=== PATIENT | male | born 1950 | race African-American/Black ===

== ENCOUNTER 2019-09-10 10:54 | Observation (INO) | payer MEDICARE ==
[2019-09-10 11:16] LABS: #Eosinphils 0.1 thou/uL (0.0-0.7); #Lymphocytes 1.2 thou/uL (1.20-3.40); #Monocytes 0.6 thou/uL (0.11-0.59); #Neutrophils 10.8 thou/uL (1.40-6.50); %Basophils 0.3 % (0.0-1.0); %Eosinophils 0.7 % (0.0-10.0); %Lymphocytes 9.1 % (21.0-51.0); %Neutrophils 84.9 % (42.0-75.0); Hemoglobin 12.5 g/dL (14.0-18.0); Mean Corpuscular HGB CONC 33.3 g/dL (32.0-36.0); Mean Corpuscular Volume 87.3 fL (78.0-98.0); Mean Platelet Volume 7.5 fL (7.4-10.4); Platelet Count 285 thou/uL (130-400); RBC Distribution Width 11.6 % (11.5-14.5); White Blood Cell (WBC) Count 12.7 thou/uL (4.8-10.8)
[2019-09-10 11:35] LABS: ALT (SGPT) 67 U/L (8-55); AST (SGOT) 29 U/L (5-34); Albumin 3.8 g/dL (3.4-4.8); Alkaline Phosphatase 97 U/L (40-110); Anion Gap 18 mmol/L (10-20); BUN (Urea Nitrogen) 39 mg/dL (8.4-25.7); Bilirubin, Total 0.5 mg/dL (0.2-1.2); CK (CPK) 52 U/L (30-200); Calc. Creatinine Clearance 0 mL/min (70-130); Carbon Dioxide 23 mmol/L (23-31); Chloride 99 mmol/L (98-107); Estimated GFR-MDRD 43; Globulin 3.3 g/dL (2.4-3.5); Glucose 321 mg/dL (80-115); Lipase 39 U/L (8-78); Potassium 4.5 mmol/L (3.5-5.1); Protein, Total 7.1 g/dL (5.8-8.1); Sodium 135 mmol/L (136-145)
--- NOTE | 2019-09-10 11:52 | RAD ---
PORTABLE CHEST 1 VIEW: Date: 09/10/2019 Time: 1120 hours HISTORY: Dyspnea. Fatigue. Abnormal EKG FINDINGS: The heart size is normal. The lungs are expanded without focal areas of consolidation, pneumothoraces , or pleural effusions. IMPRESSION: No radiographic evidence of acute cardiopulmonary process. POS: TPC
[2019-09-10] MEDS ORDERED: Bisacodyl 10 MG SUPP PR PRN (13:25)
[2019-09-10] MEDS ORDERED: Nitroglycerin 0.4 MG TAB (25 Tab Bottle) PO PRN (13:25)
[2019-09-10] MEDS ORDERED: Dextrose 50% Abboject 50 ML SYRINGE SLOW IVP PRN (13:25)
[2019-09-10] MEDS ORDERED: Senokot S 8.6-50 MG TAB PO PRN (13:25)
[2019-09-10] MEDS ORDERED: Acetaminophen 325 MG TAB PO PRN (13:25)
[2019-09-10] MEDS ORDERED: Dextrose 5% in Water 1,000 ML IV PRN (13:25)
[2019-09-10] MEDS ORDERED: Guaifenesin DM 100-10/5 ML UDCUP PO PRN (13:25)
[2019-09-10] MEDS ORDERED: traMADol HCl 50 MG TAB PO PRN (13:25)
[2019-09-10] MEDS ORDERED: HumaLOG 300 UNITS/3 ML VIAL SC PRN ×2 (13:25)
[2019-09-10] MEDS ORDERED: Ondansetron PF 4 MG/2 ML Vial IVP PRN (13:25)
[2019-09-10] MEDS ORDERED: Sodium Chloride 0.9% 1,000 ML IV SCH (13:30)
--- NOTE | 2019-09-10 14:04 | HP ---
REASON FOR ADMISSION: Exertional shortness of breath and chest pain. HISTORY OF PRESENTING ILLNESS: The patient gives history of exertional shortness of breath on minimal exertion. He states it is around 50 to 75 feet. This gets resolved with the patient resting. This has started out in the last 2 weeks now. It has progressively gotten worse. He had a scheduled followup appointment to see his primary care physician and was transferred here. Also, his diabetes has been a bit uncontrolled with fingerstick glucose going beyond 300. He had an echo done last year in his primary care physician's office. As far as he knows, it was normal. He had mild chest discomfort, which is completely resolved now. No complaints of fever, cough, or expectoration. No flu-like illness in the past few days. PAST MEDICAL AND SURGICAL HISTORY: Hypertension, dyslipidemia, and diabetes mellitus, type 2. Had a cyst removed in his neck. Left foot surgery. CURRENT MEDICATIONS: 1. Janumet twice daily. 2. Simvastatin 10 mg daily. 3. Glyburide 5 mg daily. 4. Aspirin 81 mg daily. 5. Multivitamin one tablet once daily. It is unclear if he takes lisinopril. ALLERGIES: NO KNOWN DRUG ALLERGIES. PERSONAL HISTORY: Does not abuse alcohol or drugs. No history of smoking. 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 Lives with his . FAMILY HISTORY: Mother at the age of 87 from natural causes. Father at the age of 67. He was alcoholic and had cirrhosis. CODE STATUS: Full. 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 REVIEW OF SYSTEMS: CONSTITUTIONAL: Negative for weight loss or gain, ability to conduct usual activities. SKIN: Negative for rash, itching. EYES: Negative for double vision, pain. ENT/MOUTH: Negative for nose bleeding, neck stiffness, pain, tenderness. CARDIOVASCULAR: Negative for palpitations, dyspnea on exertion, orthopnea. RESPIRATORY: Negative for shortness of breath, wheezing, cough, hemoptysis, fever or night sweats. GASTROINTESTINAL: Negative for poor appetite, abdominal pain, heartburn, nausea , vomiting, constipation, or diarrhea. GENITOURINARY: Negative for urgency, frequency, dysuria, nocturia. MUSCULOSKELETAL: Negative for pain, swelling. NEUROLOGIC/PSYCHIATRIC: Negative for anxiety, depression. ALLERGY/IMMUNOLOGIC: Negative for skin rash, bleeding tendency. PHYSICAL EXAMINATION: GENERAL: The patient is a 69-year-old male, who is currently not in any acute distress. VITAL SIGNS: Blood pressure 130/70, pulse 88 per minute, respiratory rate 14 per minute, temperature 97.8 degrees Fahrenheit, and saturating 100% on room air. NECK: Supple. No elevated JVD. HEENT: Eyes; extraocular muscles intact. Pupils reacting to light. Oral cavity, mucous membranes are dry. No exudates or congestion. CARDIOVASCULAR SYSTEM: S1 and S2 heard. Regular rhythm. RESPIRATORY SYSTEM: Air entry 1+ bilateral. No rales or rhonchi. ABDOMEN: Soft. Bowel sounds heard. No tenderness, rigidity, or guarding. EXTREMITIES: No peripheral edema or calf tenderness. VASCULAR SYSTEM: Peripheral pulses 1+ bilateral. No ischemic ulcerations or gangrene. CENTRAL NERVOUS SYSTEM: No gross focal deficits noted. The patient is alert, awake, and oriented well. PSYCHIATRIC SYSTEM: The patient's mood is euthymic. No hallucinations or delusions. LABORATORY DATA: EKG done shows normal sinus rhythm at 84 beats per minute. There are signs of LVH with poor R-wave progression with Q wave seen in leads II and III. Chest x-ray done shows no acute cardiopulmonary process. BUN 39, creatinine 1.8 , serum glucose 321. AST 29, ALT 67, T bilirubin 0.5, alkaline phosphatase 97. Troponin x1 negative. Albumin is 3.8. Lipase is 39. H and H 12 and 37, platelet count 285, white count of 12.7 with 84% neutrophils. CLINICAL IMPRESSION AND PLAN: The patient will be under observation on telemetry for exertional shortness of breath with one episode of mild chest pain, which got resolved. He has some EKG changes of likely LVH with Q waves in inferior wall. We will obtain two more sets of cardiac enzymes and keep him n.p.o. after midnight for nuclear stress test in the morning. Echo with 2D Doppler for LV function. BNP level. Influenza A and B antigens as well. We will continue him on full dose aspirin, Norvasc 10 mg, glyburide at 5 mg, Lantus 10 units subcu twice daily, and we will hold his metformin for now. We will also hold his lisinopril in view of acute kidney injury likely with CKD. He will be gently hydrated with normal saline at 100 mL per hour. This will be held if his BNP is high. Clinically, the patient appears to be mildly dehydrated. We will obtain a lipid profile in the morning. Job ID: [id number] MTDD
[2019-09-10 14:19] LABS: Bacteria/HPF 4+ HPF (None Seen); Bilirubin Negative (Negative); Blood, Urine 2+ (Negative); Clarity Turbid (Clear); Glucose, Urine (Dipstick) 500 mg/dL (Negative); Leukocyte 500 Leu/uL (Negative); Nitrite 2+ (Negative); Protein, Urine (Dipstick) 30 mg/dL (Neg-Trace); Urobilinogen Normal mg/dL (Less than 2); WBC/HPF Greater than 50 HPF (0-3)
[2019-09-10 15:03] LABS: Hemoglobin A1c 10.1 % (4.0-6.0)
--- NOTE | 2019-09-10 15:08 | CT ---
CT PULMONARY ANGIOGRAM WITH IV CONTRAST AND 3D POSTPROCESSING: Date: 09/10/2019 HISTORY: Shortness of breath. FINDINGS: There is good contrast opacification of the pulmonary arterial vasculature without filling defects to suggest pulmonary embolism. The thoracic aorta is opacified without aneurysm or dissection. No pleur al or pericardial effusions are seen. No lung masses or focal areas of consolidation are noted. There are calcified lymph nodes in the mediastinum and right hilum. A small hiatal hernia is present. Ther e is inferior intrathoracic/substernal extension of a nodular thyroid gland. There are degenerative c hanges in the spine. There are cysts in the left kidney on the upper abdominal tomograms. A small hia kristen hernia is present. IMPRESSION: No CT evidence for pulmonary embolism. POS: TPC
[2019-09-10 15:12] LABS: Troponin I 0.011 ng/mL (< 0.028)
[2019-09-10] MEDS ORDERED: Iopamidol-370 76% 500 ML 1 ML ONE (15:55)
[2019-09-10 16:04] VITALS: BMI 30.6
[2019-09-10 17:53] LABS: Troponin I Less than 0.010 ng/mL (< 0.028)
[2019-09-10] MEDS: Famotidine 20 MG TAB PO SCH (19:33)
[2019-09-10] MEDS: Insulin Glargine 10 UNITS in Pre-Filled Syringe SC SCH (20:48)
[2019-09-10] MEDS ORDERED: Simvastatin 20 MG TAB PO SCH (21:00)
[2019-09-11 05:20] LABS: #Eosinphils 0.1 thou/uL (0.0-0.7); #Lymphocytes 1.6 thou/uL (1.20-3.40); #Monocytes 1.1 thou/uL (0.11-0.59); #Neutrophils 7.4 thou/uL (1.40-6.50); %Basophils 0.3 % (0.0-1.0); %Lymphocytes 15.3 % (21.0-51.0); %Monocytes 10.5 % (0.0-10.0); %Neutrophils 72.8 % (42.0-75.0); Hemoglobin 10.9 g/dL (14.0-18.0); Mean Corpuscular Hemoglobin 28.5 pg (27.0-31.0); Mean Corpuscular Volume 86.5 fL (78.0-98.0); Mean Platelet Volume 7.9 fL (7.4-10.4); Platelet Count 262 thou/uL (130-400); RBC Distribution Width 11.5 % (11.5-14.5); Red Blood Cell (RBC) Count 3.84 mill/uL (4.70-6.10); White Blood Cell (WBC) Count 10.2 thou/uL (4.8-10.8)
[2019-09-11 05:49] LABS: Anion Gap 15 mmol/L (10-20); BUN (Urea Nitrogen) 33 mg/dL (8.4-25.7); Calc. Creatinine Clearance 66 mL/min (70-130); Calcium 8.8 mg/dL (7.8-10.44); Carbon Dioxide 23 mmol/L (23-31); Cardiac Risk 3.8 (Less than 4.5); Chloride 104 mmol/L (98-107); Cholesterol 84 mg/dl (< 200 Desired); Estimated GFR-MDRD 62; Glucose 148 mg/dL (80-115); HDL Cholesterol 22 mg/dL (>60 Neg Risk); LDL Cholesterol, Calculated 48 mg/dL; Potassium 4.5 mmol/L (3.5-5.1); Sodium 137 mmol/L (136-145); Triglycerides 71 mg/dL (Less than 150)
[2019-09-11] MEDS: Insulin Glargine 10 UNITS in Pre-Filled Syringe SC SCH (07:39)
[2019-09-11] MEDS: Famotidine 20 MG TAB PO SCH (07:46)
[2019-09-11] MEDS ORDERED: glyBURIDE 5 MG TAB PO SCH (08:00)
[2019-09-11 08:23] VITALS: TEMP 97.8
[2019-09-11] MEDS ORDERED: Aspirin 325 mg Enteric Coated Tablet PO SCH (09:00)
[2019-09-11] MEDS ORDERED: Amlodipine 10 MG TAB PO SCH (09:00)
[2019-09-11] MEDS ORDERED: Enoxaparin Sodium 40 MG/0.4 ML SYRINGE SC SCH (09:00)
--- NOTE | 2019-09-11 12:22 | NM ---
NM Cardiac Stress W EF WF History: Chest pain Comparison: None. Findings: Stress and rest performed after the intravenous administration of 31.7 and 10.1 mCi technet ium 99m sestamibi, respectively. No evidence for scar or ischemia. Normal wall motion. Calculated ejection fraction is 56%. Impression: Normal nuclear medicine cardiac stress test.
[2019-09-11 12:50] VITALS: BP 141/65
[2019-09-11] MEDS ORDERED: ADENOSINE 60 MG/20 ML VIAL ONE (15:45)
--- NOTE | 2019-09-11 18:21 | DIS ---
DATE OF ADMISSION: 09/10/2019 DATE OF DISCHARGE: 09/11/2019 DISCHARGE DISPOSITION: Home. PRIMARY DISCHARGE DIAGNOSIS: Shortness of breath on exertion with chest discomfort, resolved. SECONDARY DISCHARGE DIAGNOSES: Uncontrolled diabetes, dyslipidemia, and hypertension. PROCEDURES DONE DURING HOSPITALIZATION: CT angio chest done, showed no evidence of PE. Echo with 2D Doppler showed ejection fraction of 55% to 60%, there was diastolic dysfunction. Nuclear stress test done was normal with normal wall motion, no evidence of scar or ischemia. Urine culture grew gram-negative sandra with preliminary culture, sensitivities are pending. Influenza A and B antigens are negative. H and H 11 and 33, platelet count 262, MCV is 86. Initial BUN and creatinine were 39 and 1.8. HbA1c 10.1. Troponin x3 negative. BNP 60. Total cholesterol 84, triglycerides 71, LDL 48, and HDL 22. Discharge BUN and creatinine of 33 and 1.3. DISCHARGE MEDICATIONS: 1. Ciprofloxacin 500 mg p.o. twice daily for 5 days for UTI. 2. Lisinopril 10 mg p.o. daily. 3. Norvasc 10 mg p.o. daily. 4. Janumet extended release mg twice daily. 5. Glimepiride 4 mg p.o. q.a.m. 6. Multivitamin 1 capsule daily. 7. Aspirin 81 mg p.o. daily. 8. Simvastatin 20 mg p.o. daily. ALLERGIES: NO KNOWN DRUG ALLERGIES. DISCHARGE PLAN: The patient to follow up with in 1 week. The patient also requires outpatient screening colonoscopy. BRIEF COURSE DURING HOSPITALIZATION: The patient initially was sent over from his primary care physician's office for new onset of exertional shortness of breath. In view of this history, the patient was placed under observation on telemetry. He has multiple risk factors for ACS. He has had 3 sets of troponin done, which were negative. Echo with 2D Doppler done showed normal ejection fraction with diastolic dysfunction. Nuclear stress test showed no reversible ischemia. The patient has H and H of 11 and 33, and would benefit from outpatient colonoscopy, which is a screening measure, he has never had one per the patient. He has also mentioned that he has lost some weight recently. Further workup in this regard to be done via primary care physician's office. He is otherwise hemodynamically stable and will be shortly discharged home. Please note, I have seen and examined the patient on the day of discharge. Job ID: [id number]
[2019-09-11] MEDS ORDERED: Ciprofloxacin 500 MG TAB PO SCH (20:00)
== END 2019-09-11 14:37 | disposition home or self-care (01) ==
LOC: ERS 10:54 → ERHOLD 14:03 → 2SW 15:53
PROVIDERS: ADMIT Internal Medicine; ATTEND Emergency Medicine
DX: R06.02 Shortness of breath (principal); R07.89 Other chest pain; I10 Essential (primary) hypertension; E11.9 Type 2 diabetes mellitus without complications; E78.5 Hyperlipidemia, unspecified; Z79.84 Long term (current) use of oral hypoglycemic drugs; Z79.82 Long term (current) use of aspirin; Z79.899 Other long term (current) drug therapy
CPT/HCPCS: 71045; 71275; 78452; 80048; 80053; 80061; 82550; 82962 ×2; 83036; 83690; 83880; 84484 ×2; 85025 ×2; 85379; 87077; 87086; 87186; 87804 ×2; 93005; 93017; 93306; 94760; 96360; 96361 ×2; 96372; 99285; A9500; G0378 ×3; 36415; 36416; 81003; 81015; J0153; J1650; J1815; Q9967

== ENCOUNTER 2020-12-25 15:57 | Outpatient (CLI) | payer MEDICARE ==
[2020-12-26 02:15] LABS: SARS-CoV-2 PCR by NAA Not Detected (NotDetected)
== END 2020-12-25 15:58 | disposition home or self-care (01) ==
LOC: LABBT 15:57
PROVIDERS: ATTEND Ophthalmology Retina Specialist
DX: Z01.812 Encounter for preprocedural laboratory examination (principal); H43.11 Vitreous hemorrhage, right eye; Z20.822 Contact with and (suspected) exposure to COVID-19
CPT/HCPCS: U0003; U0005; 87635

== ENCOUNTER 2020-12-30 08:26 | Day surgery (SDC) | payer MEDICARE ==
[~2020-12-30 08:26] MED LIST: Cyclopentolate 1% Ophth Drops 15 ML BOT ONE; EPINEPHrine 0.3 MG in Ophthalmic Irrigation Solution 500 ML IRR SCH; Fentanyl 100 MCG/2 ML VIAL ONE; Midazolam HCl 2 mg/2 ml Vial ONE; Phenylephrine 2.5% Ophth Soln 5 ML BOT ONE
[2020-12-30] MEDS ORDERED: Triamcinolone 40 MG/ML VIAL ONE (09:24)
[2020-12-30] MEDS ORDERED: Lidocaine 4% PF 5 ML AMP ONE (09:24)
[2020-12-30] MEDS ORDERED: CEFAZOLIN 1 GM VIAL ONE (09:24)
[2020-12-30] MEDS ORDERED: Maxitrol 0.1% Opth Oint 3.5 GM TUBE ONE (09:24)
[2020-12-30] MEDS ORDERED: PROPOFOL 200 MG/20 ML VIAL ONE (09:24)
[2020-12-30] MEDS ORDERED: Lidocaine 1% PF 5 ML VIAL ONE (09:24)
[2020-12-30] MEDS ORDERED: Bupivacaine PF 0.75% SDV 10 ML ONE (09:24)
== END 2020-12-30 10:30 | disposition home or self-care (01) ==
LOC: SDC 08:26
PROVIDERS: ATTEND Ophthalmology Retina Specialist
PROC: 08T43ZZ Resection of Right Vitreous, Percutaneous Approach (ICD-10-PCS; principal; 2020-12-30)
PROC: 08QE3ZZ Repair Right Retina, Percutaneous Approach (ICD-10-PCS; 2020-12-30)
DX: H43.11 Vitreous hemorrhage, right eye (principal); E11.3591 Type 2 diabetes mellitus with proliferative diabetic retinopathy without macular edema, right eye; Z79.82 Long term (current) use of aspirin; Z79.84 Long term (current) use of oral hypoglycemic drugs; Z79.899 Other long term (current) drug therapy
CPT/HCPCS: J0171; J0690; J2250; J2704; J3010; J3301; J3490

== ENCOUNTER 2021-12-15 13:31 | Inpatient (IN) | payer MEDICARE ==
[~2021-12-15 13:31] MED LIST changes: -Cyclopentolate 1% Ophth Drops 15 ML BOT ONE; -EPINEPHrine 0.3 MG in Ophthalmic Irrigation Solution 500 ML IRR SCH; -Fentanyl 100 MCG/2 ML VIAL ONE; +Heparin 1,000 UNITS/ML VIAL ONE; -Midazolam HCl 2 mg/2 ml Vial ONE; -Phenylephrine 2.5% Ophth Soln 5 ML BOT ONE
[2021-12-15 15:04] LABS: #Eosinphils 0.1 thou/uL (0.0-0.7); #Lymphocytes 1.5 thou/uL (1.20-3.40); #Monocytes 1.3 thou/uL (0.11-0.59); #Neutrophils 13.7 thou/uL (1.40-6.50); %Basophils 0.3 % (0.0-1.0); %Eosinophils 0.4 % (0.0-10.0); %Lymphocytes 8.8 % (21.0-51.0); %Monocytes 8.1 % (0.0-10.0); %Neutrophils 82.5 % (42.0-75.0); Hemoglobin 11.8 g/dL (14.0-18.0); Mean Corpuscular HGB CONC 31.9 g/dL (32.0-36.0); Mean Corpuscular Hemoglobin 28.7 pg (27.0-31.0); Mean Platelet Volume 7.4 fL (7.4-10.4); Platelet Count 265 thou/uL (130-400); RBC Distribution Width 11.9 % (11.5-14.5); Red Blood Cell (RBC) Count 4.09 mill/uL (4.70-6.10); White Blood Cell (WBC) Count 16.6 thou/uL (4.8-10.8)
[2021-12-15 15:21] LABS: ALT (SGPT) 70 U/L (8-55); AST (SGOT) 63 U/L (5-34); Alkaline Phosphatase 104 U/L (40-110); Anion Gap 16 mmol/L (10-20); BUN (Urea Nitrogen) 34 mg/dL (8.4-25.7); Bilirubin, Total 0.6 mg/dL (0.2-1.2); Calc. Creatinine Clearance 0 mL/min (70-130); Calcium 9.6 mg/dL (7.8-10.44); Carbon Dioxide 23 mmol/L (23-31); Chloride 99 mmol/L (98-107); Globulin 3.9 g/dL (2.4-3.5); Glucose 289 mg/dL (83-110); Potassium 4.6 mmol/L (3.5-5.1); Protein, Total 7.9 g/dL (5.8-8.1); Sodium 133 mmol/L (136-145)
[2021-12-15] MEDS ORDERED: Cefepime 2 GM VIAL ONE (16:05)
[2021-12-15] MEDS ORDERED: Clindamycin/D5W 900 MG in Premix Bag 1 BAG IVPB SCH (18:00)
[2021-12-15] MEDS ORDERED: Vancomycin 1 GM/200 ML BAG ONE ×2 (19:04→19:09)
[2021-12-15] MEDS ORDERED: VANCOMYCIN 2 GRAM/400 ML BAG 2 GM in Premix Bag 1 BAG IVPB SCH (19:30)
[2021-12-15 20:36] LABS: Lactic Acid 1.7 mmol/L (0.5-2.2)
[2021-12-15] MEDS ORDERED: Propranolol 10 MG TAB PO SCH (21:45)
[2021-12-15] MEDS ORDERED: Polyethylene Glycol 3350 17 GM Packet PO PRN (22:26)
[2021-12-15 22:27] LABS: SARS-CoV-2 PCR by NAA Not Detected (NotDetected)
[2021-12-16] MEDS ORDERED: Dextrose 5% in Water 1,000 ML IV PRN (00:03)
[2021-12-16] MEDS ORDERED: Acetaminophen 650 MG Suppository PR PRN (00:03)
[2021-12-16] MEDS ORDERED: Ondansetron ODT 4 MG TAB PO PRN (00:03)
[2021-12-16] MEDS ORDERED: Dextrose 50% Abboject 50 ML SYRINGE SLOW IVP PRN (00:03)
[2021-12-16] MEDS ORDERED: HumaLOG 300 UNITS/3 ML VIAL SC PRN (00:03)
[2021-12-16] MEDS ORDERED: Ondansetron PF 4 MG/2 ML Vial IVP PRN (00:03)
[2021-12-16] MEDS ORDERED: Piperacillin/Tazobactam 3.375 GM in Sodium Chloride 0.9% 100 ML IVPB SCH ×2 (01:00→05:00)
[2021-12-16 05:18] LABS: #Eosinphils 0.1 thou/uL (0.0-0.7); #Lymphocytes 1.5 thou/uL (1.20-3.40); #Monocytes 1.1 thou/uL (0.11-0.59); #Neutrophils 10.6 thou/uL (1.40-6.50); %Basophils 0.1 % (0.0-1.0); %Eosinophils 0.5 % (0.0-10.0); %Lymphocytes 11.5 % (21.0-51.0); %Monocytes 8.1 % (0.0-10.0); %Neutrophils 79.8 % (42.0-75.0); Hemoglobin 10.5 g/dL (14.0-18.0); Mean Corpuscular HGB CONC 32.7 g/dL (32.0-36.0); Mean Corpuscular Hemoglobin 29.3 pg (27.0-31.0); Mean Corpuscular Volume 89.4 fL (78.0-98.0); Mean Platelet Volume 7.4 fL (7.4-10.4); Platelet Count 231 thou/uL (130-400); RBC Distribution Width 11.8 % (11.5-14.5); White Blood Cell (WBC) Count 13.3 thou/uL (4.8-10.8)
[2021-12-16 05:27] LABS: Anion Gap 16 mmol/L (10-20); BUN (Urea Nitrogen) 31 mg/dL (8.4-25.7); Calc. Creatinine Clearance 71 mL/min (70-130); Carbon Dioxide 22 mmol/L (23-31); Chloride 101 mmol/L (98-107); Glucose 213 mg/dL (83-110); Potassium 3.9 mmol/L (3.5-5.1); Sodium 135 mmol/L (136-145)
[2021-12-16] MEDS: HumaLOG 300 UNITS/3 ML VIAL SC PRN ×2 (06:22→18:35)
[2021-12-16] MEDS: Propranolol 10 MG TAB PO SCH ×2 (08:02→20:55)
[2021-12-16] MEDS: Amlodipine 10 MG TAB PO SCH (08:02)
[2021-12-16] MEDS: Enoxaparin Sodium 40 MG/0.4 ML SYRINGE SC SCH (08:03)
[2021-12-16] MEDS: Lisinopril 10 MG TAB PO SCH (08:03)
[2021-12-16] MEDS: Piperacillin/Tazobactam 3.375 GM in Sodium Chloride 0.9% 100 ML IVPB SCH ×3 (08:04→23:43)
[2021-12-16] MEDS ORDERED: Lidocaine 1% (PF) 30 ML VIAL ONE (08:20)
[2021-12-16] MEDS ORDERED: Heparin 10,000 UNITS/ 10 ML VIAL ONE (08:20)
[2021-12-16] MEDS ORDERED: Iopamidol 370 76% 50 ML VIAL FS ONE (08:52)
[2021-12-16] MEDS ORDERED: Aspirin 81 mg Enteric Coated Tablet PO SCH (14:30)
[2021-12-16] MEDS: Vancomycin 1.5 GRAM/300 ML BAG 1.5 GM in Premix Bag 1 BAG IVPB SCH (20:54)
[2021-12-16] MEDS: Atorvastatin Calcium 40 MG TAB PO SCH (20:55)
[2021-12-16] MEDS: Acetaminophen 325 MG TAB PO PRN (23:43)
[2021-12-17] MEDS: Lisinopril 10 MG TAB PO SCH (08:34)
[2021-12-17] MEDS: Clopidogrel Bisulfate 75 MG TAB PO SCH (08:34)
[2021-12-17] MEDS: Amlodipine 10 MG TAB PO SCH (08:35)
[2021-12-17] MEDS: Propranolol 10 MG TAB PO SCH ×2 (08:35→20:28)
[2021-12-17] MEDS: Enoxaparin Sodium 40 MG/0.4 ML SYRINGE SC SCH (08:35)
[2021-12-17] MEDS: Aspirin 81 mg Enteric Coated Tablet PO SCH (08:35)
[2021-12-17] MEDS: Piperacillin/Tazobactam 3.375 GM in Sodium Chloride 0.9% 100 ML IVPB SCH ×3 (08:36→23:53)
[2021-12-17] MEDS ORDERED: Magnesium Citrate 300 ML BOT PO SCH ×2 (12:45→17:00)
[2021-12-17] MEDS ORDERED: Bupivacaine 0.25% HCL 30 ML VIAL ONE (16:13)
[2021-12-17] MEDS ORDERED: Neomycin-Polymyxin 1 ML AMP ONE (16:13)
[2021-12-17] MEDS ORDERED: Bacitracin Zinc Ointment 30 gm TUBE ONE (16:13)
[2021-12-17] MEDS ORDERED: Lidocaine 2% PF 5 ML VIAL ONE (16:15)
[2021-12-17] MEDS ORDERED: Piperacillin/Tazobactam 3.375 GM VIAL ONE (17:02)
[2021-12-17] MEDS ORDERED: Sodium Chloride 0.9% 100 ML ONE (17:02)
[2021-12-17] MEDS ORDERED: Fentanyl 100 MCG/2 ML VIAL ONE (17:09)
[2021-12-17] MEDS ORDERED: PROPOFOL 200 MG/20 ML VIAL ONE (17:36)
[2021-12-17] MEDS ORDERED: PHENYLEPHRINE-NS 100 MCG/ML 10 ML SYRINGE ONE (17:36)
[2021-12-17] MEDS ORDERED: Ondansetron PF 4 MG/2 ML Vial ONE (17:36)
[2021-12-17] MEDS ORDERED: Lidocaine 1% PF 5 ML VIAL ONE (17:36)
[2021-12-17] MEDS ORDERED: Bupivacaine 0.75% 10 ML VIAL ONE (17:40)
[2021-12-17] MEDS ORDERED: Ondansetron HCl/PF 4 MG/2 ML Vial IVP PRN (18:55)
[2021-12-17] MEDS ORDERED: Promethazine HCl 25 MG/ML VIAL IM PRN (18:55)
[2021-12-17] MEDS ORDERED: Promethazine HCl 25 MG/ML VIAL IVPB PRN (18:55)
[2021-12-17] MEDS: Atorvastatin Calcium 40 MG TAB PO SCH (20:28)
[2021-12-17] MEDS: Senokot S 8.6-50 MG TAB PO SCH (20:28)
[2021-12-17] MEDS: Vancomycin 1.5 GRAM/300 ML BAG 1.5 GM in Premix Bag 1 BAG IVPB SCH (20:36)
[2021-12-17 20:50] LABS: Vancomycin, Trough 10.5 ug/mL
[2021-12-17] MEDS: Vancomycin 1 GM in Premix Bag 1 BAG IVPB SCH (22:07)
[2021-12-18 05:05] LABS: #Eosinphils 0.1 thou/uL (0.0-0.7); #Lymphocytes 1.5 thou/uL (1.20-3.40); #Monocytes 0.9 thou/uL (0.11-0.59); #Neutrophils 9.5 thou/uL (1.40-6.50); %Eosinophils 0.7 % (0.0-10.0); %Lymphocytes 12.5 % (21.0-51.0); %Monocytes 7.2 % (0.0-10.0); %Neutrophils 79.5 % (42.0-75.0); Hemoglobin 10.9 g/dL (14.0-18.0); Mean Corpuscular HGB CONC 32.5 g/dL (32.0-36.0); Mean Corpuscular Hemoglobin 29.2 pg (27.0-31.0); Mean Corpuscular Volume 89.8 fL (78.0-98.0); Mean Platelet Volume 7.6 fL (7.4-10.4); Platelet Count 259 thou/uL (130-400); RBC Distribution Width 11.8 % (11.5-14.5); Red Blood Cell (RBC) Count 3.75 mill/uL (4.70-6.10)
[2021-12-18 05:25] LABS: Anion Gap 14 mmol/L (10-20); BUN (Urea Nitrogen) 17 mg/dL (8.4-25.7); CRP (Inflammatory) 14.31 mg/dL (= or < 0.5); Calc. Creatinine Clearance 80 mL/min (70-130); Calcium 8.8 mg/dL (7.8-10.44); Carbon Dioxide 21 mmol/L (23-31); Chloride 102 mmol/L (98-107); Glucose 229 mg/dL (83-110); Potassium 4.3 mmol/L (3.5-5.1); Sodium 133 mmol/L (136-145)
[2021-12-18] MEDS: HumaLOG 300 UNITS/3 ML VIAL SC PRN ×3 (06:25→16:33)
[2021-12-18] MEDS: Piperacillin/Tazobactam 3.375 GM in Sodium Chloride 0.9% 100 ML IVPB SCH ×3 (08:18→23:36)
[2021-12-18] MEDS: Enoxaparin Sodium 40 MG/0.4 ML SYRINGE SC SCH (08:18)
[2021-12-18] MEDS: Lisinopril 10 MG TAB PO SCH (08:19)
[2021-12-18] MEDS: Propranolol 10 MG TAB PO SCH ×2 (08:19→20:30)
[2021-12-18] MEDS: Amlodipine 10 MG TAB PO SCH (08:19)
[2021-12-18] MEDS: Aspirin 81 mg Enteric Coated Tablet PO SCH (08:19)
[2021-12-18] MEDS: Senokot S 8.6-50 MG TAB PO SCH ×2 (08:19→20:30)
[2021-12-18] MEDS: Clopidogrel Bisulfate 75 MG TAB PO SCH (08:19)
[2021-12-18] MEDS: Vancomycin 1 GM in Premix Bag 1 BAG IVPB SCH ×2 (09:04→20:28)
[2021-12-18] MEDS: Atorvastatin Calcium 40 MG TAB PO SCH (20:30)
[2021-12-18] MEDS ORDERED: Insulin Glargine 30 UNITS/0.3 ML VIAL SC SCH (21:00)
[2021-12-19] MEDS: Insulin Regular 300 UNITS/3 ML VIAL SC PRN ×4 (05:11→20:38)
[2021-12-19 05:29] LABS: #Eosinphils 0.1 thou/uL (0.0-0.7); #Lymphocytes 1.8 thou/uL (1.20-3.40); #Monocytes 0.9 thou/uL (0.11-0.59); %Basophils 0.4 % (0.0-1.0); %Eosinophils 0.8 % (0.0-10.0); %Lymphocytes 14.9 % (21.0-51.0); %Monocytes 7.4 % (0.0-10.0); %Neutrophils 76.6 % (42.0-75.0); Hemoglobin 10.6 g/dL (14.0-18.0); Mean Corpuscular HGB CONC 33.7 g/dL (32.0-36.0); Mean Corpuscular Hemoglobin 29.9 pg (27.0-31.0); Mean Corpuscular Volume 88.6 fL (78.0-98.0); Platelet Count 279 thou/uL (130-400); RBC Distribution Width 11.7 % (11.5-14.5); Red Blood Cell (RBC) Count 3.55 mill/uL (4.70-6.10); White Blood Cell (WBC) Count 11.8 thou/uL (4.8-10.8)
[2021-12-19 05:49] LABS: Anion Gap 13 mmol/L (10-20); BUN (Urea Nitrogen) 17 mg/dL (8.4-25.7); CRP (Inflammatory) 13.25 mg/dL (= or < 0.5); Calc. Creatinine Clearance 78 mL/min (70-130); Calcium 8.7 mg/dL (7.8-10.44); Carbon Dioxide 24 mmol/L (23-31); Chloride 103 mmol/L (98-107); Glucose 247 mg/dL (83-110); Potassium 4.5 mmol/L (3.5-5.1); Sodium 135 mmol/L (136-145)
[2021-12-19 08:29] LABS: Vancomycin, Trough 18.7 ug/mL
[2021-12-19] MEDS: Piperacillin/Tazobactam 3.375 GM in Sodium Chloride 0.9% 100 ML IVPB SCH ×3 (09:44→23:34)
[2021-12-19] MEDS: Amlodipine 10 MG TAB PO SCH (09:47)
[2021-12-19] MEDS: Aspirin 81 mg Enteric Coated Tablet PO SCH (09:48)
[2021-12-19] MEDS: Lisinopril 10 MG TAB PO SCH (09:48)
[2021-12-19] MEDS: Clopidogrel Bisulfate 75 MG TAB PO SCH (09:48)
[2021-12-19] MEDS: Propranolol 10 MG TAB PO SCH ×2 (09:49→20:36)
[2021-12-19] MEDS: Enoxaparin Sodium 40 MG/0.4 ML SYRINGE SC SCH (09:49)
[2021-12-19] MEDS: Senokot S 8.6-50 MG TAB PO SCH ×2 (09:51→20:36)
[2021-12-19] MEDS: Vancomycin 1 GM in Premix Bag 1 BAG IVPB SCH ×2 (13:09→21:42)
[2021-12-19] MEDS: Atorvastatin Calcium 40 MG TAB PO SCH (20:36)
[2021-12-19] MEDS ORDERED: Insulin Glargine 30 UNITS/0.3 ML VIAL SC SCH (21:00)
[2021-12-20 05:10] LABS: #Eosinphils 0.2 thou/uL (0.0-0.7); #Lymphocytes 1.8 thou/uL (1.20-3.40); #Monocytes 0.8 thou/uL (0.11-0.59); #Neutrophils 8.7 thou/uL (1.40-6.50); %Basophils 0.3 % (0.0-1.0); %Eosinophils 1.5 % (0.0-10.0); %Monocytes 6.5 % (0.0-10.0); %Neutrophils 75.7 % (42.0-75.0); Hemoglobin 9.8 g/dL (14.0-18.0); Mean Corpuscular HGB CONC 32.7 g/dL (32.0-36.0); Mean Corpuscular Volume 88.6 fL (78.0-98.0); Mean Platelet Volume 7.1 fL (7.4-10.4); Platelet Count 292 thou/uL (130-400); RBC Distribution Width 11.8 % (11.5-14.5); Red Blood Cell (RBC) Count 3.38 mill/uL (4.70-6.10); White Blood Cell (WBC) Count 11.5 thou/uL (4.8-10.8)
[2021-12-20 05:35] LABS: Anion Gap 14 mmol/L (10-20); BUN (Urea Nitrogen) 27 mg/dL (8.4-25.7); Calc. Creatinine Clearance 61 mL/min (70-130); Calcium 8.9 mg/dL (7.8-10.44); Carbon Dioxide 22 mmol/L (23-31); Chloride 103 mmol/L (98-107); Glucose 182 mg/dL (83-110); Potassium 4.1 mmol/L (3.5-5.1); Sodium 135 mmol/L (136-145)
[2021-12-20] MEDS: Insulin Regular 300 UNITS/3 ML VIAL SC PRN ×4 (06:35→20:43)
[2021-12-20] MEDS: Enoxaparin Sodium 40 MG/0.4 ML SYRINGE SC SCH (09:00)
[2021-12-20] MEDS: Senokot S 8.6-50 MG TAB PO SCH ×2 (09:00→20:36)
[2021-12-20] MEDS: Aspirin 81 mg Enteric Coated Tablet PO SCH (09:00)
[2021-12-20] MEDS: Clopidogrel Bisulfate 75 MG TAB PO SCH (09:00)
[2021-12-20] MEDS: Vancomycin 1 GM in Premix Bag 1 BAG IVPB SCH ×2 (09:00→20:27)
[2021-12-20] MEDS: Propranolol 10 MG TAB PO SCH ×2 (09:00→20:37)
[2021-12-20] MEDS: Piperacillin/Tazobactam 3.375 GM in Sodium Chloride 0.9% 100 ML IVPB SCH ×3 (09:00→23:27)
[2021-12-20 13:13] LABS: HBSAg Index 0.23 S/CO (0-0.99); HIV (1/2) Antibody/Antigen Non-Reactive (NonReactive); HIV 1/2 INDEX 0.07 S/CO (<1.00); Hep B Surf Ag Non-Reactive S/CO (NonReactive); Hep C IgG Ab Non-Reactive (NonReactive); Hep C Index 0.07 S/CO (0-0.79)
[2021-12-20] MEDS: Insulin Glargine 30 UNITS/0.3 ML VIAL SC SCH (20:35)
[2021-12-20] MEDS: Atorvastatin Calcium 40 MG TAB PO SCH (20:37)
[2021-12-20 20:54] LABS: Vancomycin, Trough 25.1 ug/mL
[2021-12-21 05:23] LABS: #Eosinphils 0.2 thou/uL (0.0-0.7); #Lymphocytes 1.9 thou/uL (1.20-3.40); #Monocytes 0.8 thou/uL (0.11-0.59); #Neutrophils 7.8 thou/uL (1.40-6.50); %Basophils 0.1 % (0.0-1.0); %Eosinophils 1.5 % (0.0-10.0); %Lymphocytes 17.5 % (21.0-51.0); %Monocytes 7.5 % (0.0-10.0); %Neutrophils 73.4 % (42.0-75.0); Hemoglobin 9.6 g/dL (14.0-18.0); Mean Corpuscular HGB CONC 32.8 g/dL (32.0-36.0); Mean Corpuscular Hemoglobin 28.9 pg (27.0-31.0); Mean Corpuscular Volume 88.3 fL (78.0-98.0); Mean Platelet Volume 6.9 fL (7.4-10.4); Platelet Count 302 thou/uL (130-400); RBC Distribution Width 11.7 % (11.5-14.5); Red Blood Cell (RBC) Count 3.32 mill/uL (4.70-6.10); White Blood Cell (WBC) Count 10.6 thou/uL (4.8-10.8)
[2021-12-21 05:48] LABS: Anion Gap 12 mmol/L (10-20); BUN (Urea Nitrogen) 24 mg/dL (8.4-25.7); CRP (Inflammatory) 7.46 mg/dL (= or < 0.5); Calc. Creatinine Clearance 64 mL/min (70-130); Calcium 9.2 mg/dL (7.8-10.44); Carbon Dioxide 24 mmol/L (23-31); Chloride 105 mmol/L (98-107); Glucose 96 mg/dL (83-110); Potassium 3.8 mmol/L (3.5-5.1); Sodium 137 mmol/L (136-145)
[2021-12-21] MEDS: Piperacillin/Tazobactam 3.375 GM in Sodium Chloride 0.9% 100 ML IVPB SCH ×2 (09:20→17:55)
[2021-12-21] MEDS: Senokot S 8.6-50 MG TAB PO SCH ×2 (09:21→20:46)
[2021-12-21] MEDS: Aspirin 81 mg Enteric Coated Tablet PO SCH (09:21)
[2021-12-21] MEDS: Enoxaparin Sodium 40 MG/0.4 ML SYRINGE SC SCH (09:21)
[2021-12-21] MEDS: Clopidogrel Bisulfate 75 MG TAB PO SCH (09:22)
[2021-12-21] MEDS: Lisinopril 10 MG TAB PO SCH (10:27)
[2021-12-21] MEDS: Propranolol 10 MG TAB PO SCH ×2 (10:27→20:46)
[2021-12-21] MEDS: Amlodipine 10 MG TAB PO SCH (10:28)
[2021-12-21] MEDS: Insulin Regular 300 UNITS/3 ML VIAL SC PRN ×2 (12:53→18:45)
[2021-12-21] MEDS: VANCOMYCIN 1.75 GM/350 ML BAG 1.75 GM in Premix Bag 1 BAG IVPB SCH (15:22)
[2021-12-21] MEDS: metroNIDAZOLE 500 MG TAB PO SCH (20:46)
[2021-12-21] MEDS: Insulin Glargine 30 UNITS/0.3 ML VIAL SC SCH (20:46)
[2021-12-21] MEDS: Atorvastatin Calcium 40 MG TAB PO SCH (20:46)
[2021-12-22] MEDS: Enoxaparin Sodium 40 MG/0.4 ML SYRINGE SC SCH (09:45)
[2021-12-22] MEDS: Clopidogrel Bisulfate 75 MG TAB PO SCH (09:45)
[2021-12-22] MEDS: Aspirin 81 mg Enteric Coated Tablet PO SCH (09:45)
[2021-12-22] MEDS: Senokot S 8.6-50 MG TAB PO SCH ×2 (09:50→21:03)
[2021-12-22] MEDS: Amlodipine 10 MG TAB PO SCH (09:50)
[2021-12-22] MEDS: metroNIDAZOLE 500 MG TAB PO SCH ×2 (09:50→21:07)
[2021-12-22] MEDS: Propranolol 10 MG TAB PO SCH ×2 (09:50→21:07)
[2021-12-22] MEDS: Lisinopril 10 MG TAB PO SCH (09:50)
[2021-12-22] MEDS: Insulin Regular 300 UNITS/3 ML VIAL SC PRN ×2 (11:53→21:06)
[2021-12-22 12:50] LABS: SARS-CoV-2 PCR by NAA Not Detected (NotDetected)
[2021-12-22] MEDS: VANCOMYCIN 1.75 GM/350 ML BAG 1.75 GM in Premix Bag 1 BAG IVPB SCH (14:55)
[2021-12-22] MEDS: Atorvastatin Calcium 40 MG TAB PO SCH (21:07)
[2021-12-22] MEDS: Insulin Glargine 30 UNITS/0.3 ML VIAL SC SCH (21:24)
[2021-12-23] MEDS: Insulin Regular 300 UNITS/3 ML VIAL SC PRN ×3 (06:23→17:37)
[2021-12-23] MEDS: Propranolol 10 MG TAB PO SCH ×2 (09:12→20:56)
[2021-12-23] MEDS: Amlodipine 10 MG TAB PO SCH (09:12)
[2021-12-23] MEDS: Clopidogrel Bisulfate 75 MG TAB PO SCH (09:12)
[2021-12-23] MEDS: Aspirin 81 mg Enteric Coated Tablet PO SCH (09:12)
[2021-12-23] MEDS: Enoxaparin Sodium 40 MG/0.4 ML SYRINGE SC SCH (09:12)
[2021-12-23] MEDS: Lisinopril 10 MG TAB PO SCH (09:12)
[2021-12-23] MEDS: Senokot S 8.6-50 MG TAB PO SCH ×2 (09:12→20:56)
[2021-12-23] MEDS: metroNIDAZOLE 500 MG TAB PO SCH ×2 (09:12→20:56)
[2021-12-23] MEDS ORDERED: Vancomycin HCl 1.75 GM in Sodium Chloride 0.9% 500 ML IVPB SCH (15:00)
[2021-12-23 15:09] LABS: Vancomycin, Trough 21.4 ug/mL
[2021-12-23] MEDS: Vancomycin HCl 1.5 GM in Sodium Chloride 0.9% 250 ML 300 ML IVPB SCH (16:02)
[2021-12-23] MEDS: Atorvastatin Calcium 40 MG TAB PO SCH (20:56)
[2021-12-23] MEDS: Insulin Glargine 30 UNITS/0.3 ML VIAL SC SCH (21:03)
[2021-12-24] MEDS: Aspirin 81 mg Enteric Coated Tablet PO SCH (09:08)
[2021-12-24] MEDS: Lisinopril 10 MG TAB PO SCH (09:09)
[2021-12-24] MEDS: Senokot S 8.6-50 MG TAB PO SCH ×2 (09:09→20:17)
[2021-12-24] MEDS: Amlodipine 10 MG TAB PO SCH (09:10)
[2021-12-24] MEDS: Clopidogrel Bisulfate 75 MG TAB PO SCH (09:11)
[2021-12-24] MEDS: Propranolol 10 MG TAB PO SCH ×2 (09:11→20:17)
[2021-12-24] MEDS: metroNIDAZOLE 500 MG TAB PO SCH ×2 (09:11→20:17)
[2021-12-24] MEDS: Enoxaparin Sodium 40 MG/0.4 ML SYRINGE SC SCH (09:12)
[2021-12-24] MEDS: Insulin Regular 300 UNITS/3 ML VIAL SC PRN ×2 (13:02→19:05)
[2021-12-24] MEDS: Vancomycin HCl 1.5 GM in Sodium Chloride 0.9% 250 ML 300 ML IVPB SCH (16:47)
[2021-12-24] MEDS: Atorvastatin Calcium 40 MG TAB PO SCH (20:16)
[2021-12-24] MEDS: Insulin Glargine 30 UNITS/0.3 ML VIAL SC SCH (20:17)
[2021-12-25] MEDS: Insulin Regular 300 UNITS/3 ML VIAL SC PRN ×3 (06:16→16:11)
[2021-12-25] MEDS: Enoxaparin Sodium 40 MG/0.4 ML SYRINGE SC SCH (08:20)
[2021-12-25] MEDS: Clopidogrel Bisulfate 75 MG TAB PO SCH (08:21)
[2021-12-25] MEDS: Lisinopril 10 MG TAB PO SCH (08:21)
[2021-12-25] MEDS: Propranolol 10 MG TAB PO SCH ×2 (08:21→22:29)
[2021-12-25] MEDS: Senokot S 8.6-50 MG TAB PO SCH ×2 (08:21→22:29)
[2021-12-25] MEDS: Aspirin 81 mg Enteric Coated Tablet PO SCH (08:21)
[2021-12-25] MEDS: metroNIDAZOLE 500 MG TAB PO SCH ×2 (08:21→22:29)
[2021-12-25] MEDS: Amlodipine 10 MG TAB PO SCH (08:32)
[2021-12-25 15:31] LABS: Vancomycin, Trough 17.3 ug/mL
[2021-12-25] MEDS: Vancomycin HCl 1.5 GM in Sodium Chloride 0.9% 250 ML 300 ML IVPB SCH (16:11)
[2021-12-25] MEDS: Insulin Glargine 30 UNITS/0.3 ML VIAL SC SCH (22:26)
[2021-12-25] MEDS: Atorvastatin Calcium 40 MG TAB PO SCH (22:30)
[2021-12-26] MEDS: Insulin Regular 300 UNITS/3 ML VIAL SC PRN ×4 (06:28→20:32)
[2021-12-26] MEDS: Lisinopril 10 MG TAB PO SCH (08:47)
[2021-12-26] MEDS: Enoxaparin Sodium 40 MG/0.4 ML SYRINGE SC SCH (08:47)
[2021-12-26] MEDS: Senokot S 8.6-50 MG TAB PO SCH ×2 (08:47→20:29)
[2021-12-26] MEDS: Propranolol 10 MG TAB PO SCH ×2 (08:48→20:29)
[2021-12-26] MEDS: metroNIDAZOLE 500 MG TAB PO SCH ×2 (08:48→20:29)
[2021-12-26] MEDS: Aspirin 81 mg Enteric Coated Tablet PO SCH (08:48)
[2021-12-26] MEDS: Amlodipine 10 MG TAB PO SCH (08:48)
[2021-12-26] MEDS: Clopidogrel Bisulfate 75 MG TAB PO SCH (08:48)
[2021-12-26] MEDS: Vancomycin HCl 1.5 GM in Sodium Chloride 0.9% 250 ML 300 ML IVPB SCH (15:27)
[2021-12-26] MEDS: Atorvastatin Calcium 40 MG TAB PO SCH (20:29)
[2021-12-26] MEDS: Insulin Glargine 30 UNITS/0.3 ML VIAL SC SCH (20:29)
[2021-12-26] MEDS: Acetaminophen 325 MG TAB PO PRN (20:47)
[2021-12-27] MEDS: Insulin Regular 300 UNITS/3 ML VIAL SC PRN ×4 (06:07→21:13)
[2021-12-27] MEDS ORDERED: Insulin Glargine 30 UNITS/0.3 ML VIAL SC SCH (08:30)
[2021-12-27] MEDS: Aspirin 81 mg Enteric Coated Tablet PO SCH (09:41)
[2021-12-27] MEDS: Senokot S 8.6-50 MG TAB PO SCH ×2 (09:42→21:10)
[2021-12-27] MEDS: metroNIDAZOLE 500 MG TAB PO SCH ×2 (09:42→21:10)
[2021-12-27] MEDS: Clopidogrel Bisulfate 75 MG TAB PO SCH (09:43)
[2021-12-27] MEDS: Enoxaparin Sodium 40 MG/0.4 ML SYRINGE SC SCH (09:45)
[2021-12-27] MEDS: Amlodipine 10 MG TAB PO SCH (10:03)
[2021-12-27] MEDS: Lisinopril 10 MG TAB PO SCH (10:04)
[2021-12-27] MEDS: Propranolol 10 MG TAB PO SCH ×2 (10:05→21:29)
[2021-12-27] MEDS: Vancomycin HCl 1.5 GM in Sodium Chloride 0.9% 250 ML 300 ML IVPB SCH (16:10)
[2021-12-27] MEDS: Insulin Glargine 30 UNITS/0.3 ML VIAL SC SCH (21:11)
[2021-12-27] MEDS: Atorvastatin Calcium 40 MG TAB PO SCH (21:11)
[2021-12-28] MEDS: Propranolol 10 MG TAB PO SCH ×2 (08:14→20:11)
[2021-12-28] MEDS: Amlodipine 10 MG TAB PO SCH (08:14)
[2021-12-28] MEDS: Senokot S 8.6-50 MG TAB PO SCH ×2 (08:14→20:11)
[2021-12-28] MEDS: Lisinopril 10 MG TAB PO SCH (08:14)
[2021-12-28] MEDS: Enoxaparin Sodium 40 MG/0.4 ML SYRINGE SC SCH (08:14)
[2021-12-28] MEDS: Aspirin 81 mg Enteric Coated Tablet PO SCH (08:14)
[2021-12-28] MEDS: metroNIDAZOLE 500 MG TAB PO SCH ×2 (08:14→20:10)
[2021-12-28] MEDS: Clopidogrel Bisulfate 75 MG TAB PO SCH (08:15)
[2021-12-28 15:14] LABS: Vancomycin, Trough 16.6 ug/mL
[2021-12-28] MEDS: Vancomycin HCl 1.5 GM in Sodium Chloride 0.9% 250 ML 300 ML IVPB SCH (16:28)
[2021-12-28] MEDS: Insulin Regular 300 UNITS/3 ML VIAL SC PRN (16:28)
[2021-12-28] MEDS: Atorvastatin Calcium 40 MG TAB PO SCH (20:10)
[2021-12-28] MEDS: Insulin Glargine 30 UNITS/0.3 ML VIAL SC SCH (20:11)
[2021-12-28 23:33] LABS: SARS-CoV-2 PCR by NAA Not Detected (NotDetected)
[2021-12-29 05:29] LABS: #Eosinphils 0.1 thou/uL (0.0-0.7); #Lymphocytes 1.7 thou/uL (1.20-3.40); #Monocytes 0.6 thou/uL (0.11-0.59); #Neutrophils 4.9 thou/uL (1.40-6.50); %Basophils 0.3 % (0.0-1.0); %Lymphocytes 23.3 % (21.0-51.0); %Monocytes 7.7 % (0.0-10.0); %Neutrophils 67.7 % (42.0-75.0); Hemoglobin 9.3 g/dL (14.0-18.0); Mean Corpuscular HGB CONC 32.7 g/dL (32.0-36.0); Mean Corpuscular Hemoglobin 29.2 pg (27.0-31.0); Mean Corpuscular Volume 89.1 fL (78.0-98.0); Mean Platelet Volume 7.1 fL (7.4-10.4); Platelet Count 230 thou/uL (130-400); RBC Distribution Width 12.5 % (11.5-14.5); Red Blood Cell (RBC) Count 3.17 mill/uL (4.70-6.10); White Blood Cell (WBC) Count 7.3 thou/uL (4.8-10.8)
[2021-12-29 05:50] LABS: Anion Gap 12 mmol/L (10-20); BUN (Urea Nitrogen) 23 mg/dL (8.4-25.7); Calc. Creatinine Clearance 74 mL/min (70-130); Calcium 8.8 mg/dL (7.8-10.44); Carbon Dioxide 22 mmol/L (23-31); Chloride 110 mmol/L (98-107); Glucose 147 mg/dL (83-110); Potassium 3.9 mmol/L (3.5-5.1); Sodium 140 mmol/L (136-145)
[2021-12-29] MEDS: metroNIDAZOLE 500 MG TAB PO SCH (08:21)
[2021-12-29] MEDS: Senokot S 8.6-50 MG TAB PO SCH (08:21)
[2021-12-29] MEDS: Amlodipine 10 MG TAB PO SCH (08:21)
[2021-12-29] MEDS: Propranolol 10 MG TAB PO SCH (08:21)
[2021-12-29] MEDS: Aspirin 81 mg Enteric Coated Tablet PO SCH (08:21)
[2021-12-29] MEDS: Clopidogrel Bisulfate 75 MG TAB PO SCH (08:21)
[2021-12-29] MEDS: Enoxaparin Sodium 40 MG/0.4 ML SYRINGE SC SCH (08:22)
[2021-12-29] MEDS: Lisinopril 10 MG TAB PO SCH (08:22)
[2021-12-29 08:23] VITALS: BP 122/73
[2021-12-29 08:38] VITALS: TEMP 98.6
== END 2021-12-29 15:11 | DRG 854 ==
LOC: ERS 13:31 → MSONC 17:40
PROVIDERS: ADMIT Internal Medicine; ATTEND Internal Medicine
PROC: 3E03329 Introduction of Other Anti-infective into Peripheral Vein, Percutaneous Approach (ICD-10-PCS; 2021-12-15)
PROC: 047L3ZZ Dilation of Left Femoral Artery, Percutaneous Approach (ICD-10-PCS; 2021-12-16)
PROC: B41D1ZZ Fluoroscopy of Aorta and Bilateral Lower Extremity Arteries using Low Osmolar Contrast (ICD-10-PCS; 2021-12-16)
PROC: 0Y6N0ZF Detachment at Left Foot, Partial 5th Ray, Open Approach (ICD-10-PCS; principal; 2021-12-17)
PROC: 02HV33Z Insertion of Infusion Device into Superior Vena Cava, Percutaneous Approach (ICD-10-PCS; 2021-12-22)
PROC: B5181ZA Fluoroscopy of Superior Vena Cava using Low Osmolar Contrast, Guidance (ICD-10-PCS; 2021-12-22)
DX: A41.02 Sepsis due to Methicillin resistant Staphylococcus aureus (principal); E11.52 Type 2 diabetes mellitus with diabetic peripheral angiopathy with gangrene; M86.8X7 Other osteomyelitis, ankle and foot; L03.116 Cellulitis of left lower limb; E87.1 Hypo-osmolality and hyponatremia; N17.9 Acute kidney failure, unspecified; E87.2 Acidosis; Z20.822 Contact with and (suspected) exposure to COVID-19; E78.5 Hyperlipidemia, unspecified; E11.69 Type 2 diabetes mellitus with other specified complication; E11.22 Type 2 diabetes mellitus with diabetic chronic kidney disease; E78.00 Pure hypercholesterolemia, unspecified; I12.9 Hypertensive chronic kidney disease with stage 1 through stage 4 chronic kidney disease, or unspecified chronic kidney disease; E11.65 Type 2 diabetes mellitus with hyperglycemia; E11.40 Type 2 diabetes mellitus with diabetic neuropathy, unspecified; N18.30 Chronic kidney disease, stage 3 unspecified; E11.621 Type 2 diabetes mellitus with foot ulcer; L97.522 Non-pressure chronic ulcer of other part of left foot with fat layer exposed; Z79.899 Other long term (current) drug therapy; Z79.82 Long term (current) use of aspirin; Z79.84 Long term (current) use of oral hypoglycemic drugs; Z89.422 Acquired absence of other left toe(s)
CPT/HCPCS: 36247; 36415; 36416; 36569; 37224; 71046; 74019; 80048; 80053; 80202; 82565; 83605; 85025; 85652; 86140; 86803; 87040; 87070; 87076; 87077; 87186; 87205; 87340; 87389; 88305; 88311; 93306; 94760; 96365; 96367; C1725; C1751; J0692; J1644; J1650; J1815; J2001; J2405; J2543; J2704; J3010; J3370; J3490; J7050; Q9967; S0020; U0003; U0005

== ENCOUNTER 2022-04-19 09:59 | Outpatient (CLI) | payer MEDICARE | END 2022-04-19 10:00 | disposition home or self-care (01) | LOC: BICRAD 09:59 | PROVIDERS: ATTEND Podiatrist | DX: E11.621 Type 2 diabetes mellitus with foot ulcer (principal); L97.519 Non-pressure chronic ulcer of other part of right foot with unspecified severity; L97.529 Non-pressure chronic ulcer of other part of left foot with unspecified severity; M19.072 Primary osteoarthritis, left ankle and foot ==

== ENCOUNTER 2022-05-09 18:42 | Inpatient (IN) | payer MEDICARE ==
[2022-05-09] MEDS ORDERED: Vancomycin 1 GM/200 ML BAG ONE (19:21)
[2022-05-09] MEDS ORDERED: Piperacillin/Tazobactam 3.375 GM VIAL ONE (19:21)
[2022-05-09 19:30] LABS: #Lymphocytes 0.7 thou/uL (1.20-3.40); #Neutrophils 15.8 thou/uL (1.40-6.50); %Eosinophils 0.2 % (0.0-10.0); %Monocytes 5.4 % (0.0-10.0); %Neutrophils 90.4 % (42.0-75.0); Mean Corpuscular HGB CONC 33.2 g/dL (32.0-36.0); Mean Corpuscular Hemoglobin 27.6 pg (27.0-31.0); Mean Corpuscular Volume 83.4 fL (78.0-98.0); Mean Platelet Volume 7.4 fL (7.4-10.4); Platelet Count 260 thou/uL (130-400); RBC Distribution Width 13.7 % (11.5-14.5); White Blood Cell (WBC) Count 17.5 thou/uL (4.8-10.8)
[2022-05-09 19:39] LABS: INR-International Normal Ratio 1.3
[2022-05-09 19:40] LABS: PTT 45.8 sec (22.9-36.1)
[2022-05-09 19:56] LABS: ALT (SGPT) 18 U/L (8-55); AST (SGOT) 25 U/L (5-34); Albumin 3.6 g/dL (3.4-4.8); Alkaline Phosphatase 88 U/L (40-110); Anion Gap 22 mmol/L (10-20); BUN (Urea Nitrogen) 26 mg/dL (8.4-25.7); Bilirubin, Total 0.5 mg/dL (0.2-1.2); Calc. Creatinine Clearance 0 mL/min (70-130); Calcium 9.3 mg/dL (7.8-10.44); Carbon Dioxide 17 mmol/L (23-31); Chloride 104 mmol/L (98-107); Estimated GFR 49; Globulin 4.5 g/dL (2.4-3.5); Glucose 273 mg/dL (83-110); Potassium 4.5 mmol/L (3.5-5.1); Protein, Total 8.1 g/dL (5.8-8.1); Sodium 138 mmol/L (136-145)
[2022-05-09 20:08] LABS: CRP (Inflammatory) 32.91 mg/dL (= or < 0.5)
[2022-05-09 20:49] LABS: SARS-CoV-2 NAA Rapid Test Not Detected (NotDetected)
[2022-05-09 22:02] LABS: Bacteria/HPF None Seen HPF (None Seen); Bilirubin Negative (Negative); Blood, Urine Trace (Negative); Clarity Clear (Clear); Glucose, Urine (Dipstick) 500 mg/dL (Negative); Ketone, Urine Negative (Negative); Leukocyte Negative Leu/uL (Negative); Nitrite Negative (Negative); Protein, Urine (Dipstick) 30 mg/dL (Neg-Trace); RBC/HPF None Seen HPF (0-3); Specific Gravity, Urine 1.016 (1.002-1.036); Squamous Epithelial 0-3 HPF (0-3); Urobilinogen Normal mg/dL (Less than 2); WBC/HPF 0-3 HPF (0-3)
[2022-05-09] MEDS ORDERED: Ondansetron PF 4 MG/2 ML Vial IVP PRN (22:11)
[2022-05-09] MEDS ORDERED: Dextrose 5% in Water 1,000 ML IV PRN (22:23)
[2022-05-09] MEDS ORDERED: Dextrose 50% Abboject 50 ML SYRINGE SLOW IVP PRN (22:23)
[2022-05-09] MEDS ORDERED: hydrALAZINE 20 MG/ML VIAL SLOW IVP PRN (22:39)
[2022-05-09 22:43] LABS: Lactic Acid 1.2 mmol/L (0.5-2.2)
[2022-05-09 23:02] VITALS: BMI 30.6
[2022-05-09] MEDS: Acetaminophen 325 MG TAB PO PRN (23:09)
[2022-05-09] MEDS: Sodium Chloride 0.9% 1,000 ML IV SCH (23:11)
[2022-05-10] MEDS: HumaLOG 300 UNITS/3 ML VIAL SC PRN ×2 (00:37→17:41)
[2022-05-10] MEDS: Cefepime 1 GM in Sodium Chloride 0.9% 100 ML IVPB SCH ×2 (03:00→14:53)
[2022-05-10 04:56] LABS: #Monocytes 1.1 thou/uL (0.11-0.59); #Neutrophils 12.2 thou/uL (1.40-6.50); %Basophils 0.1 % (0.0-1.0); %Eosinophils 0.3 % (0.0-10.0); %Lymphocytes 6.8 % (21.0-51.0); %Monocytes 7.4 % (0.0-10.0); %Neutrophils 85.4 % (42.0-75.0); Hemoglobin 9.1 g/dL (14.0-18.0); Mean Corpuscular HGB CONC 33.5 g/dL (32.0-36.0); Mean Corpuscular Hemoglobin 27.9 pg (27.0-31.0); Mean Corpuscular Volume 83.3 fL (78.0-98.0); Mean Platelet Volume 7.2 fL (7.4-10.4); Platelet Count 230 thou/uL (130-400); RBC Distribution Width 13.8 % (11.5-14.5); Red Blood Cell (RBC) Count 3.27 mill/uL (4.70-6.10); White Blood Cell (WBC) Count 14.2 thou/uL (4.8-10.8)
[2022-05-10 05:16] LABS: Anion Gap 17 mmol/L (10-20); BUN (Urea Nitrogen) 21 mg/dL (8.4-25.7); Calc. Creatinine Clearance 88 mL/min (70-130); Calcium 8.6 mg/dL (7.8-10.44); Carbon Dioxide 19 mmol/L (23-31); Chloride 107 mmol/L (98-107); Estimated GFR 80; Glucose 168 mg/dL (83-110); Potassium 3.8 mmol/L (3.5-5.1); Sodium 139 mmol/L (136-145)
[2022-05-10] MEDS: Heparin 5,000 UNITS/ML VIAL SC SCH ×2 (09:22→21:16)
[2022-05-10] MEDS: Sodium Chloride 0.9% 1,000 ML IV SCH (09:22)
[2022-05-10] MEDS ORDERED: Propranolol 10 MG TAB PO SCH (12:00)
[2022-05-10] MEDS ORDERED: Vancomycin 1.5 GRAM/300 ML BAG 1.5 GM in Premix Bag 1 BAG IVPB SCH (12:00)
[2022-05-10] MEDS: Acetaminophen 325 MG TAB PO PRN (14:53)
[2022-05-10] MEDS: Atorvastatin Calcium 10 MG TAB PO SCH (21:16)
[2022-05-11 04:25] LABS: #Eosinphils 0.1 thou/uL (0.0-0.7); #Monocytes 0.8 thou/uL (0.11-0.59); #Neutrophils 10.3 thou/uL (1.40-6.50); %Basophils 0.1 % (0.0-1.0); %Eosinophils 0.6 % (0.0-10.0); %Lymphocytes 8.5 % (21.0-51.0); %Monocytes 6.3 % (0.0-10.0); %Neutrophils 84.5 % (42.0-75.0); Mean Corpuscular HGB CONC 32.2 g/dL (32.0-36.0); Mean Corpuscular Hemoglobin 26.9 pg (27.0-31.0); Mean Corpuscular Volume 83.4 fL (78.0-98.0); Mean Platelet Volume 7.8 fL (7.4-10.4); Platelet Count 262 thou/uL (130-400); RBC Distribution Width 13.7 % (11.5-14.5); Red Blood Cell (RBC) Count 3.33 mill/uL (4.70-6.10); White Blood Cell (WBC) Count 12.2 thou/uL (4.8-10.8)
[2022-05-11 04:41] LABS: Anion Gap 18 mmol/L (10-20); BUN (Urea Nitrogen) 19 mg/dL (8.4-25.7); Calc. Creatinine Clearance 83 mL/min (70-130); Calcium 8.7 mg/dL (7.8-10.44); Carbon Dioxide 18 mmol/L (23-31); Chloride 105 mmol/L (98-107); Estimated GFR 75; Glucose 200 mg/dL (83-110); Sodium 137 mmol/L (136-145)
[2022-05-11] MEDS: Cefepime 1 GM in Sodium Chloride 0.9% 100 ML IVPB SCH ×2 (04:48→18:20)
[2022-05-11] MEDS: HumaLOG 300 UNITS/3 ML VIAL SC PRN (06:17)
[2022-05-11] MEDS: Propranolol 10 MG TAB PO SCH (08:00)
[2022-05-11] MEDS: Amlodipine 10 MG TAB PO SCH (08:00)
[2022-05-11] MEDS: Heparin 5,000 UNITS/ML VIAL SC SCH ×2 (08:12→21:25)
[2022-05-11 11:18] LABS: Vancomycin, Trough 9.1 ug/mL
[2022-05-11] MEDS: Acetaminophen 325 MG TAB PO PRN ×2 (11:44→21:25)
[2022-05-11] MEDS: Sodium Chloride 0.9% 1,000 ML IV SCH (11:53)
[2022-05-11] MEDS ORDERED: VANCOMYCIN 1.75 GM/500 ML BAG 1.75 GM in Premix Bag 1 BAG IVPB SCH (12:00)
[2022-05-11] MEDS ORDERED: fentaNYL Citrate/PF 100 MCG/2 ML SYRINGE ONE ×2 (15:22→16:51)
[2022-05-11] MEDS ORDERED: Bupivacaine PF 0.5% 30 ML VIAL ONE (15:41)
[2022-05-11] MEDS ORDERED: Lidocaine 2% PF 5 ML VIAL ONE (15:41)
[2022-05-11] MEDS ORDERED: Neomycin-Polymyxin 1 ML AMP ONE (15:41)
[2022-05-11] MEDS ORDERED: Midazolam HCl 2 mg/2 ml Vial ONE (16:51)
[2022-05-11] MEDS ORDERED: Ondansetron PF 4 MG/2 ML Vial ONE (17:08)
[2022-05-11] MEDS ORDERED: Ondansetron HCl/PF 4 MG/2 ML Vial IVP PRN (18:31)
[2022-05-11] MEDS ORDERED: Promethazine HCl 25 MG/ML VIAL IVPB PRN (18:31)
[2022-05-11] MEDS ORDERED: Promethazine HCl 25 MG/ML VIAL IM PRN (18:31)
[2022-05-11] MEDS: Atorvastatin Calcium 10 MG TAB PO SCH (21:25)
[2022-05-12] MEDS: Sodium Chloride 0.9% 1,000 ML IV SCH ×2 (03:04→13:48)
[2022-05-12] MEDS: Cefepime 1 GM in Sodium Chloride 0.9% 100 ML IVPB SCH ×2 (04:50→16:49)
[2022-05-12 04:57] LABS: #Eosinphils 0.2 thou/uL (0.0-0.7); #Lymphocytes 1.4 thou/uL (1.20-3.40); #Monocytes 0.7 thou/uL (0.11-0.59); %Basophils 0.3 % (0.0-1.0); %Eosinophils 1.7 % (0.0-10.0); %Lymphocytes 15.3 % (21.0-51.0); %Monocytes 7.8 % (0.0-10.0); Hemoglobin 8.5 g/dL (14.0-18.0); Mean Corpuscular Hemoglobin 27.6 pg (27.0-31.0); Mean Corpuscular Volume 83.5 fL (78.0-98.0); Mean Platelet Volume 7.5 fL (7.4-10.4); Platelet Count 266 thou/uL (130-400); RBC Distribution Width 13.8 % (11.5-14.5); Red Blood Cell (RBC) Count 3.07 mill/uL (4.70-6.10); White Blood Cell (WBC) Count 9.4 thou/uL (4.8-10.8)
[2022-05-12 05:16] LABS: Anion Gap 13 mmol/L (10-20); BUN (Urea Nitrogen) 23 mg/dL (8.4-25.7); Calc. Creatinine Clearance 76 mL/min (70-130); Calcium 8.6 mg/dL (7.8-10.44); Carbon Dioxide 23 mmol/L (23-31); Chloride 105 mmol/L (98-107); Estimated GFR 68; Glucose 281 mg/dL (83-110); Sodium 137 mmol/L (136-145)
[2022-05-12] MEDS: HumaLOG 300 UNITS/3 ML VIAL SC PRN ×3 (06:26→16:55)
[2022-05-12] MEDS: Propranolol 10 MG TAB PO SCH (08:55)
[2022-05-12] MEDS: Amlodipine 10 MG TAB PO SCH (08:56)
[2022-05-12] MEDS: Heparin 5,000 UNITS/ML VIAL SC SCH ×2 (08:56→20:39)
[2022-05-12] MEDS: traMADol HCl 50 MG TAB PO PRN ×2 (08:56→20:39)
[2022-05-12] MEDS: VANCOMYCIN 2 GRAM/500 ML BAG 2 GM in Premix Bag 1 BAG IVPB SCH (11:35)
[2022-05-12] MEDS ORDERED: Electrolyte Replacement Protocol 1 EACH FS SCH (12:45)
[2022-05-12] MEDS: Glimepiride 2 MG TAB PO SCH (16:50)
[2022-05-12] MEDS: Acetaminophen 325 MG TAB PO PRN (16:50)
[2022-05-12] MEDS: Atorvastatin Calcium 10 MG TAB PO SCH (20:40)
[2022-05-13] MEDS ORDERED: Polyethylene Glycol 3350 17 GM Packet PO PRN (02:04)
[2022-05-13] MEDS ORDERED: Senokot 8.6 MG TAB PO PRN (02:04)
[2022-05-13] MEDS: Cefepime 1 GM in Sodium Chloride 0.9% 100 ML IVPB SCH (04:16)
[2022-05-13] MEDS: Sodium Chloride 0.9% 1,000 ML IV SCH (04:16)
[2022-05-13] MEDS: Acetaminophen 325 MG TAB PO PRN ×3 (04:27→14:00)
[2022-05-13] MEDS: Amlodipine 10 MG TAB PO SCH (08:02)
[2022-05-13] MEDS: Heparin 5,000 UNITS/ML VIAL SC SCH ×2 (08:03→21:11)
[2022-05-13] MEDS: Glimepiride 2 MG TAB PO SCH ×2 (08:03→17:44)
[2022-05-13] MEDS: Propranolol 10 MG TAB PO SCH (09:03)
[2022-05-13] MEDS: traMADol HCl 50 MG TAB PO PRN ×2 (11:26→23:41)
[2022-05-13 11:37] LABS: #Eosinphils 0.1 thou/uL (0.0-0.7); #Lymphocytes 1.1 thou/uL (1.20-3.40); #Monocytes 0.6 thou/uL (0.11-0.59); #Neutrophils 8.1 thou/uL (1.40-6.50); %Basophils 0.2 % (0.0-1.0); %Eosinophils 1.5 % (0.0-10.0); %Monocytes 6.1 % (0.0-10.0); %Neutrophils 81.2 % (42.0-75.0); Hemoglobin 8.5 g/dL (14.0-18.0); Mean Corpuscular HGB CONC 31.3 g/dL (32.0-36.0); Mean Corpuscular Hemoglobin 26.3 pg (27.0-31.0); Mean Corpuscular Volume 83.9 fL (78.0-98.0); Mean Platelet Volume 7.3 fL (7.4-10.4); Platelet Count 322 thou/uL (130-400); RBC Distribution Width 13.7 % (11.5-14.5); Red Blood Cell (RBC) Count 3.24 mill/uL (4.70-6.10); White Blood Cell (WBC) Count 9.9 thou/uL (4.8-10.8)
[2022-05-13 11:53] LABS: Vancomycin, Trough 13.4 ug/mL
[2022-05-13 11:55] LABS: Anion Gap 14 mmol/L (10-20); BUN (Urea Nitrogen) 19 mg/dL (8.4-25.7); Calc. Creatinine Clearance 84 mL/min (70-130); Calcium 8.8 mg/dL (7.8-10.44); Carbon Dioxide 22 mmol/L (23-31); Chloride 104 mmol/L (98-107); Estimated GFR 77; Glucose 264 mg/dL (83-110); Potassium 4.1 mmol/L (3.5-5.1); Sodium 136 mmol/L (136-145)
[2022-05-13] MEDS: VANCOMYCIN 2 GRAM/500 ML BAG 2 GM in Premix Bag 1 BAG IVPB SCH (13:27)
[2022-05-13] MEDS: Vancomycin 1 GM in Premix Bag 1 BAG IVPB SCH ×2 (13:42→23:28)
[2022-05-13] MEDS: HumaLOG 300 UNITS/3 ML VIAL SC PRN ×2 (13:43→17:44)
[2022-05-13] MEDS: Cefepime 2 GM in Sodium Chloride 0.9% 100 ML IVPB SCH (15:42)
[2022-05-13] MEDS: Atorvastatin Calcium 10 MG TAB PO SCH (21:11)
[2022-05-14] MEDS: Cefepime 2 GM in Sodium Chloride 0.9% 100 ML IVPB SCH ×2 (03:44→15:55)
[2022-05-14] MEDS: Sodium Chloride 0.9% 1,000 ML IV SCH (03:44)
[2022-05-14] MEDS: HumaLOG 300 UNITS/3 ML VIAL SC PRN ×3 (06:06→17:49)
[2022-05-14] MEDS: Glimepiride 2 MG TAB PO SCH ×2 (08:44→16:00)
[2022-05-14] MEDS: Amlodipine 10 MG TAB PO SCH (08:44)
[2022-05-14] MEDS: Propranolol 10 MG TAB PO SCH (08:45)
[2022-05-14] MEDS: Heparin 5,000 UNITS/ML VIAL SC SCH ×2 (08:45→21:00)
[2022-05-14] MEDS: Vancomycin 1 GM in Premix Bag 1 BAG IVPB SCH (12:30)
[2022-05-14] MEDS: ALPRAZolam 0.25 MG TAB PO PRN (17:48)
[2022-05-14] MEDS: Atorvastatin Calcium 10 MG TAB PO SCH (21:00)
[2022-05-14 23:25] LABS: Vancomycin, Trough 19.7 ug/mL
[2022-05-15] MEDS: Vancomycin 1 GM in Premix Bag 1 BAG IVPB SCH ×3 (01:10→23:02)
[2022-05-15] MEDS: Sodium Chloride 0.9% 1,000 ML IV SCH ×2 (01:11→20:52)
[2022-05-15] MEDS: Cefepime 2 GM in Sodium Chloride 0.9% 100 ML IVPB SCH ×2 (05:00→17:14)
[2022-05-15] MEDS: Glimepiride 2 MG TAB PO SCH ×2 (09:47→17:15)
[2022-05-15] MEDS: Amlodipine 10 MG TAB PO SCH (09:53)
[2022-05-15] MEDS: Heparin 5,000 UNITS/ML VIAL SC SCH ×2 (09:54→20:51)
[2022-05-15] MEDS: Propranolol 10 MG TAB PO SCH (09:54)
[2022-05-15] MEDS: HumaLOG 300 UNITS/3 ML VIAL SC PRN ×2 (18:13→20:51)
[2022-05-15] MEDS: Atorvastatin Calcium 10 MG TAB PO SCH (20:51)
[2022-05-15] MEDS: ALPRAZolam 0.25 MG TAB PO PRN (20:57)
[2022-05-16] MEDS: Cefepime 2 GM in Sodium Chloride 0.9% 100 ML IVPB SCH ×2 (03:32→17:38)
[2022-05-16] MEDS: traMADol HCl 50 MG TAB PO PRN (05:51)
[2022-05-16] MEDS: HumaLOG 300 UNITS/3 ML VIAL SC PRN ×2 (05:52→18:16)
[2022-05-16] MEDS: Amlodipine 10 MG TAB PO SCH (09:36)
[2022-05-16] MEDS: Glimepiride 2 MG TAB PO SCH ×2 (09:38→17:39)
[2022-05-16] MEDS: Propranolol 10 MG TAB PO SCH (09:38)
[2022-05-16] MEDS: Heparin 5,000 UNITS/ML VIAL SC SCH ×2 (09:41→21:54)
[2022-05-16 11:33] LABS: Vancomycin, Trough 20.4 ug/mL
[2022-05-16] MEDS: Vancomycin 1 GM in Premix Bag 1 BAG IVPB SCH ×2 (12:21→23:46)
[2022-05-16] MEDS: Sodium Chloride 0.9% 1,000 ML IV SCH ×2 (17:39→23:47)
[2022-05-16] MEDS: ALPRAZolam 0.25 MG TAB PO PRN (18:12)
[2022-05-16] MEDS: Atorvastatin Calcium 10 MG TAB PO SCH (21:54)
[2022-05-17] MEDS: HumaLOG 300 UNITS/3 ML VIAL SC PRN ×3 (05:02→17:07)
[2022-05-17] MEDS: Cefepime 2 GM in Sodium Chloride 0.9% 100 ML IVPB SCH ×2 (05:02→15:45)
[2022-05-17 08:19] LABS: #Eosinphils 0.1 thou/uL (0.0-0.7); #Lymphocytes 1.5 thou/uL (1.20-3.40); #Monocytes 0.8 thou/uL (0.11-0.59); #Neutrophils 5.5 thou/uL (1.40-6.50); %Basophils 0.2 % (0.0-1.0); %Eosinophils 1.6 % (0.0-10.0); %Lymphocytes 18.9 % (21.0-51.0); %Monocytes 10.2 % (0.0-10.0); %Neutrophils 69.1 % (42.0-75.0); Mean Corpuscular HGB CONC 33.1 g/dL (32.0-36.0); Mean Corpuscular Hemoglobin 27.5 pg (27.0-31.0); Mean Corpuscular Volume 83.1 fL (78.0-98.0); Mean Platelet Volume 6.7 fL (7.4-10.4); Platelet Count 386 thou/uL (130-400); RBC Distribution Width 13.9 % (11.5-14.5); Red Blood Cell (RBC) Count 2.92 mill/uL (4.70-6.10)
[2022-05-17 08:37] LABS: Anion Gap 14 mmol/L (10-20); BUN (Urea Nitrogen) 14 mg/dL (8.4-25.7); Calc. Creatinine Clearance 102 mL/min (70-130); Calcium 8.9 mg/dL (7.8-10.44); Carbon Dioxide 22 mmol/L (23-31); Chloride 106 mmol/L (98-107); Estimated GFR 93; Glucose 154 mg/dL (83-110); Potassium 3.6 mmol/L (3.5-5.1); Sodium 138 mmol/L (136-145)
[2022-05-17] MEDS: Glimepiride 2 MG TAB PO SCH ×2 (08:52→17:07)
[2022-05-17] MEDS: Heparin 5,000 UNITS/ML VIAL SC SCH ×2 (08:53→21:50)
[2022-05-17] MEDS: Amlodipine 10 MG TAB PO SCH (08:53)
[2022-05-17] MEDS: Propranolol 10 MG TAB PO SCH (08:54)
[2022-05-17] MEDS: Vancomycin 1 GM in Premix Bag 1 BAG IVPB SCH ×2 (12:00→23:48)
[2022-05-17] MEDS: Atorvastatin Calcium 10 MG TAB PO SCH (21:50)
[2022-05-17 23:37] LABS: Vancomycin, Trough 25.1 ug/mL
[2022-05-18] MEDS: Cefepime 2 GM in Sodium Chloride 0.9% 100 ML IVPB SCH ×2 (03:15→16:29)
[2022-05-18] MEDS: HumaLOG 300 UNITS/3 ML VIAL SC PRN ×3 (05:49→21:16)
[2022-05-18] MEDS: Glimepiride 2 MG TAB PO SCH ×2 (08:45→16:29)
[2022-05-18] MEDS: Amlodipine 10 MG TAB PO SCH (08:45)
[2022-05-18] MEDS: Propranolol 10 MG TAB PO SCH (08:46)
[2022-05-18] MEDS: Heparin 5,000 UNITS/ML VIAL SC SCH ×2 (08:46→21:16)
[2022-05-18] MEDS: traMADol HCl 50 MG TAB PO PRN (10:11)
[2022-05-18 11:54] LABS: Vancomycin, Random 16.2 ug/mL (See Comment)
[2022-05-18] MEDS ORDERED: VANCOMYCIN 2 GRAM/500 ML BAG 2 GM in Premix Bag 1 BAG IVPB SCH (12:00)
[2022-05-18] MEDS ORDERED: Vancomycin HCl 750 MG in Sodium Chloride 0.9% 250 ML 250 ML IVPB SCH (13:00)
[2022-05-18] MEDS: Vancomycin HCl 750 MG in Sodium Chloride 0.9% 250 ML 250 ML IVPB SCH (21:15)
[2022-05-18] MEDS: Atorvastatin Calcium 10 MG TAB PO SCH (21:16)
[2022-05-19] MEDS: Cefepime 2 GM in Sodium Chloride 0.9% 100 ML IVPB SCH ×2 (04:50→17:02)
[2022-05-19] MEDS: Amlodipine 10 MG TAB PO SCH (08:44)
[2022-05-19] MEDS: Vancomycin HCl 750 MG in Sodium Chloride 0.9% 250 ML 250 ML IVPB SCH ×2 (08:44→20:04)
[2022-05-19] MEDS: Heparin 5,000 UNITS/ML VIAL SC SCH ×2 (08:44→20:23)
[2022-05-19] MEDS: Propranolol 10 MG TAB PO SCH (08:45)
[2022-05-19] MEDS: Glimepiride 2 MG TAB PO SCH ×2 (08:46→17:03)
[2022-05-19] MEDS: ALPRAZolam 0.25 MG TAB PO PRN (08:49)
[2022-05-19] MEDS: HumaLOG 300 UNITS/3 ML VIAL SC PRN ×3 (12:19→20:23)
[2022-05-19 19:33] LABS: Vancomycin, Trough 17.7 ug/mL
[2022-05-19] MEDS: traMADol HCl 50 MG TAB PO PRN (20:21)
[2022-05-19] MEDS: Atorvastatin Calcium 10 MG TAB PO SCH (20:22)
[2022-05-19 21:03] VITALS: TEMP 98.1
[2022-05-20] MEDS: Cefepime 2 GM in Sodium Chloride 0.9% 100 ML IVPB SCH ×2 (04:50→15:18)
[2022-05-20] MEDS: HumaLOG 300 UNITS/3 ML VIAL SC PRN ×2 (04:57→11:47)
[2022-05-20 08:10] VITALS: BP 110/63
[2022-05-20] MEDS: Amlodipine 10 MG TAB PO SCH (08:10)
[2022-05-20] MEDS: Heparin 5,000 UNITS/ML VIAL SC SCH (08:10)
[2022-05-20] MEDS: Vancomycin HCl 750 MG in Sodium Chloride 0.9% 250 ML 250 ML IVPB SCH (08:10)
[2022-05-20] MEDS: Glimepiride 2 MG TAB PO SCH (08:10)
[2022-05-20] MEDS: Propranolol 10 MG TAB PO SCH (08:10)
[2022-05-20] MEDS: traMADol HCl 50 MG TAB PO PRN (15:15)
== END 2022-05-20 16:36 | disposition home health service (06) | DRG 854 ==
LOC: ERS 18:42 → 2NO 21:51 → T4-B 05-12 22:40
PROVIDERS: ADMIT Internal Medicine; ATTEND Internal Medicine
PROC: 3E03329 Introduction of Other Anti-infective into Peripheral Vein, Percutaneous Approach (ICD-10-PCS; 2022-05-10)
PROC: 0Y6W0Z0 Detachment at Left 4th Toe, Complete, Open Approach (ICD-10-PCS; principal; 2022-05-11)
PROC: 02HV33Z Insertion of Infusion Device into Superior Vena Cava, Percutaneous Approach (ICD-10-PCS; 2022-05-17)
PROC: B5181ZA Fluoroscopy of Superior Vena Cava using Low Osmolar Contrast, Guidance (ICD-10-PCS; 2022-05-17)
PROC: B548ZZA Ultrasonography of Superior Vena Cava, Guidance (ICD-10-PCS; 2022-05-17)
PROC: 3E04329 Introduction of Other Anti-infective into Central Vein, Percutaneous Approach (ICD-10-PCS; 2022-05-18)
DX: A41.02 Sepsis due to Methicillin resistant Staphylococcus aureus (principal); M86.272 Subacute osteomyelitis, left ankle and foot; Z20.822 Contact with and (suspected) exposure to COVID-19; E11.52 Type 2 diabetes mellitus with diabetic peripheral angiopathy with gangrene; E87.2 Acidosis; L03.116 Cellulitis of left lower limb; N17.9 Acute kidney failure, unspecified; E11.69 Type 2 diabetes mellitus with other specified complication; E78.5 Hyperlipidemia, unspecified; E11.51 Type 2 diabetes mellitus with diabetic peripheral angiopathy without gangrene; N18.30 Chronic kidney disease, stage 3 unspecified; E11.22 Type 2 diabetes mellitus with diabetic chronic kidney disease; I12.9 Hypertensive chronic kidney disease with stage 1 through stage 4 chronic kidney disease, or unspecified chronic kidney disease; R25.1 Tremor, unspecified; D63.1 Anemia in chronic kidney disease; R65.20 Severe sepsis without septic shock; E11.621 Type 2 diabetes mellitus with foot ulcer; L97.529 Non-pressure chronic ulcer of other part of left foot with unspecified severity; Z89.422 Acquired absence of other left toe(s); Z79.899 Other long term (current) drug therapy; Z79.82 Long term (current) use of aspirin; Z79.4 Long term (current) use of insulin; Z79.02 Long term (current) use of antithrombotics/antiplatelets; Z98.890 Other specified postprocedural states
CPT/HCPCS: 36415; 36416; 36569; 71045; 80048; 80053; 80202; 81003; 81015; 82550; 82565; 83605; 85025; 85610; 85730; 86140; 87040; 87070; 87076; 87077; 87086; 87149; 87186; 87205; 87811; 88305; 88311; 93005; 94760; 96365; 96366; 96367; 97139; C1751; J0692; J1644; J1815; J2001; J2250; J2405; J2543; J3370; J3490; J7050; S0020; U0002

== ENCOUNTER 2022-06-17 18:14 | Inpatient (IN) | payer MEDICARE ==
[2022-06-17 19:13] LABS: #Lymphocytes 0.5 thou/uL (1.20-3.40); #Monocytes 1.3 thou/uL (0.11-0.59); #Neutrophils 11.7 thou/uL (1.40-6.50); %Basophils 0.1 % (0.0-1.0); %Eosinophils 0.1 % (0.0-10.0); %Lymphocytes 3.9 % (21.0-51.0); %Monocytes 9.3 % (0.0-10.0); %Neutrophils 86.6 % (42.0-75.0); Hemoglobin 8.1 g/dL (14.0-18.0); Mean Corpuscular HGB CONC 31.6 g/dL (32.0-36.0); Mean Corpuscular Hemoglobin 25.8 pg (27.0-31.0); Mean Corpuscular Volume 81.5 fL (78.0-98.0); Mean Platelet Volume 7.4 fL (7.4-10.4); Platelet Count 243 thou/uL (130-400); RBC Distribution Width 14.8 % (11.5-14.5); Red Blood Cell (RBC) Count 3.13 mill/uL (4.70-6.10); White Blood Cell (WBC) Count 13.5 thou/uL (4.8-10.8)
[2022-06-17 19:29] LABS: ALT (SGPT) 10 U/L (8-55); AST (SGOT) 9 U/L (5-34); Albumin 3.4 g/dL (3.4-4.8); Alkaline Phosphatase 78 U/L (40-110); Anion Gap 14 mmol/L (10-20); BUN (Urea Nitrogen) 32 mg/dL (8.4-25.7); Bilirubin, Total 0.8 mg/dL (0.2-1.2); Calc. Creatinine Clearance 0 mL/min (70-130); Calcium 9.3 mg/dL (7.8-10.44); Carbon Dioxide 21 mmol/L (23-31); Chloride 105 mmol/L (98-107); Estimated GFR 39; Globulin 4.1 g/dL (2.4-3.5); Glucose 298 mg/dL (83-110); Potassium 4.5 mmol/L (3.5-5.1); Protein, Total 7.5 g/dL (5.8-8.1); Sodium 135 mmol/L (136-145)
[2022-06-17 22:45] LABS: Iron 8 ug/dL (65-175); Iron Binding Capacity, Total 251 mcg/dL (261-462)
[2022-06-17] MEDS ORDERED: Dextrose 50% Abboject 50 ML SYRINGE SLOW IVP PRN (22:49)
[2022-06-17] MEDS ORDERED: Dextrose 5% in Water 1,000 ML IV PRN (22:49)
[2022-06-17] MEDS ORDERED: Ondansetron ODT 4 MG TAB PO PRN (22:49)
[2022-06-17] MEDS ORDERED: Ondansetron PF 4 MG/2 ML Vial IVP PRN (22:49)
[2022-06-17] MEDS ORDERED: Acetaminophen 650 MG Suppository PR PRN (22:49)
[2022-06-17] MEDS: Acetaminophen 325 MG TAB PO PRN (23:29)
[2022-06-18] MEDS ORDERED: Electrolyte Replacement Protocol 1 EACH FS SCH (00:45)
[2022-06-18] MEDS ORDERED: Sodium Chloride 0.9% 500 ML IV SCH (02:30)
[2022-06-18] MEDS: Sodium Chloride 0.9% 1,000 ML IV SCH ×3 (02:48→23:58)
[2022-06-18] MEDS ORDERED: Doxycycline 100 MG in Sodium Chloride 0.9% 100 ML IVPB SCH (03:00)
[2022-06-18] MEDS: VANCOMYCIN 1.25 GM/250 ML BAG 1.25 GM in Premix Bag 1 BAG IVPB SCH (03:28)
[2022-06-18 03:58] LABS: #Lymphocytes 0.9 thou/uL (1.20-3.40); #Neutrophils 9.6 thou/uL (1.40-6.50); %Basophils 0.1 % (0.0-1.0); %Eosinophils 0.3 % (0.0-10.0); %Lymphocytes 7.9 % (21.0-51.0); %Monocytes 8.5 % (0.0-10.0); %Neutrophils 83.3 % (42.0-75.0); Hemoglobin 7.2 g/dL (14.0-18.0); Mean Corpuscular HGB CONC 31.6 g/dL (32.0-36.0); Mean Corpuscular Volume 82.3 fL (78.0-98.0); Mean Platelet Volume 7.6 fL (7.4-10.4); Platelet Count 246 thou/uL (130-400); RBC Distribution Width 14.8 % (11.5-14.5); Red Blood Cell (RBC) Count 2.77 mill/uL (4.70-6.10); White Blood Cell (WBC) Count 11.5 thou/uL (4.8-10.8)
[2022-06-18 04:11] LABS: Bacteria/HPF None Seen HPF (None Seen); Bilirubin Negative (Negative); Blood, Urine Negative (Negative); Clarity Clear (Clear); Glucose, Urine (Dipstick) Normal (Negative); Ketone, Urine Negative (Negative); Leukocyte Negative Leu/uL (Negative); Nitrite Negative (Negative); Protein, Urine (Dipstick) 10 mg/dL (Neg-Trace); RBC/HPF 0-3 HPF (0-3); Specific Gravity, Urine 1.021 (1.002-1.036); Squamous Epithelial 0-3 HPF (0-3); Urobilinogen Normal mg/dL (Less than 2); WBC/HPF 0-3 HPF (0-3); pH, Urine 5.5 (5.0-9.0)
[2022-06-18 04:19] LABS: Phosphorus 3.4 mg/dL (2.3-4.7)
[2022-06-18 04:20] LABS: Anion Gap 15 mmol/L (10-20); BUN (Urea Nitrogen) 30 mg/dL (8.4-25.7); Calc. Creatinine Clearance 61 mL/min (70-130); Calcium 8.9 mg/dL (7.8-10.44); Carbon Dioxide 19 mmol/L (23-31); Chloride 108 mmol/L (98-107); Estimated GFR 55; Glucose 170 mg/dL (83-110); Magnesium 1.7 mg/dL (1.6-2.6); Potassium 4.2 mmol/L (3.5-5.1); Sodium 138 mmol/L (136-145)
[2022-06-18] MEDS ORDERED: Magnesium 2 GM/50 ML(in water) 2 GM in Premix Bag 1 BAG IVPB SCH (08:00)
[2022-06-18] MEDS: Cefepime 2 GM in Sodium Chloride 0.9% 100 ML IVPB SCH ×2 (08:42→20:02)
[2022-06-18] MEDS: Aspirin Chewable 81 MG TAB PO SCH (08:45)
[2022-06-18] MEDS: Enoxaparin Sodium 40 MG/0.4 ML SYRINGE SC SCH (08:45)
[2022-06-18] MEDS: HYDROcodone/Acetaminophen 5/325 mg Tablet PO PRN (15:53)
[2022-06-18] MEDS: Acetaminophen 325 MG TAB PO PRN (20:02)
[2022-06-19] MEDS: VANCOMYCIN 1.25 GM/250 ML BAG 1.25 GM in Premix Bag 1 BAG IVPB SCH (04:40)
[2022-06-19] MEDS: HumaLOG 300 UNITS/3 ML VIAL SC PRN ×2 (05:17→20:47)
[2022-06-19 06:56] LABS: #Eosinphils 0.1 thou/uL (0.0-0.7); #Monocytes 0.8 thou/uL (0.11-0.59); #Neutrophils 5.9 thou/uL (1.40-6.50); %Eosinophils 0.9 % (0.0-10.0); %Lymphocytes 12.7 % (21.0-51.0); %Monocytes 10.2 % (0.0-10.0); %Neutrophils 76.2 % (42.0-75.0); Hemoglobin 7.1 g/dL (14.0-18.0); Mean Corpuscular HGB CONC 30.1 g/dL (32.0-36.0); Mean Corpuscular Hemoglobin 24.9 pg (27.0-31.0); Mean Corpuscular Volume 82.7 fL (78.0-98.0); Mean Platelet Volume 7.8 fL (7.4-10.4); Platelet Count 225 thou/uL (130-400); RBC Distribution Width 14.6 % (11.5-14.5); Red Blood Cell (RBC) Count 2.84 mill/uL (4.70-6.10); White Blood Cell (WBC) Count 7.7 thou/uL (4.8-10.8)
[2022-06-19 07:08] LABS: Anion Gap 12 mmol/L (10-20); BUN (Urea Nitrogen) 24 mg/dL (8.4-25.7); Calc. Creatinine Clearance 77 mL/min (70-130); Calcium 8.5 mg/dL (7.8-10.44); Carbon Dioxide 19 mmol/L (23-31); Chloride 109 mmol/L (98-107); Estimated GFR 73; Glucose 184 mg/dL (83-110); Iron 8 ug/dL (65-175); Iron Binding Capacity, Total 198 mcg/dL (261-462); Potassium 4.1 mmol/L (3.5-5.1); Sodium 136 mmol/L (136-145)
[2022-06-19 08:29] LABS: Hemoglobin A1c 6.6 % (4.0-6.0)
[2022-06-19] MEDS: Aspirin Chewable 81 MG TAB PO SCH (08:44)
[2022-06-19] MEDS: Ferrous Gluconate 324 MG TAB PO SCH (08:44)
[2022-06-19] MEDS: Enoxaparin Sodium 40 MG/0.4 ML SYRINGE SC SCH (08:45)
[2022-06-19] MEDS: Cefepime 2 GM in Sodium Chloride 0.9% 100 ML IVPB SCH ×2 (08:45→20:46)
[2022-06-19] MEDS: Sodium Chloride 0.9% 1,000 ML IV SCH ×3 (08:52→23:36)
[2022-06-19] MEDS ORDERED: Magnesium 2 GM/50 ML(in water) 2 GM in Premix Bag 1 BAG IVPB SCH (09:30)
[2022-06-19] MEDS ORDERED: Magnesium Citrate 300 ML BOT PO SCH (11:15)
[2022-06-19] MEDS ORDERED: Senokot S 8.6-50 MG TAB PO SCH (12:00)
[2022-06-19] MEDS: Acetaminophen 325 MG TAB PO PRN (14:46)
[2022-06-19] MEDS ORDERED: Ketorolac Tromethamine 30 MG/ML VIAL IVP SCH (17:00)
[2022-06-19] MEDS: Senokot S 8.6-50 MG TAB PO SCH (20:47)
[2022-06-20 03:28] LABS: #Eosinphils 0.1 thou/uL (0.0-0.7); #Lymphocytes 1.1 thou/uL (1.20-3.40); #Monocytes 1.2 thou/uL (0.11-0.59); #Neutrophils 8.9 thou/uL (1.40-6.50); %Basophils 0.2 % (0.0-1.0); %Eosinophils 0.6 % (0.0-10.0); %Lymphocytes 9.4 % (21.0-51.0); %Monocytes 10.4 % (0.0-10.0); %Neutrophils 79.4 % (42.0-75.0); Hemoglobin 7.2 g/dL (14.0-18.0); Mean Corpuscular HGB CONC 31.2 g/dL (32.0-36.0); Mean Corpuscular Hemoglobin 25.3 pg (27.0-31.0); Mean Corpuscular Volume 81.1 fL (78.0-98.0); Mean Platelet Volume 7.8 fL (7.4-10.4); Platelet Count 232 thou/uL (130-400); RBC Distribution Width 14.6 % (11.5-14.5); Red Blood Cell (RBC) Count 2.86 mill/uL (4.70-6.10); White Blood Cell (WBC) Count 11.3 thou/uL (4.8-10.8)
[2022-06-20 03:36] LABS: Vancomycin, Trough 12.5 ug/mL
[2022-06-20 03:38] LABS: Anion Gap 12 mmol/L (10-20); BUN (Urea Nitrogen) 29 mg/dL (8.4-25.7); Calc. Creatinine Clearance 65 mL/min (70-130); Calcium 8.6 mg/dL (7.8-10.44); Carbon Dioxide 20 mmol/L (23-31); Chloride 109 mmol/L (98-107); Estimated GFR 60; Glucose 192 mg/dL (83-110); Magnesium 2.2 mg/dL (1.6-2.6); Potassium 4.5 mmol/L (3.5-5.1); Sodium 136 mmol/L (136-145)
[2022-06-20] MEDS: Vancomycin 1.5 GRAM/300 ML BAG 1.5 GM in Premix Bag 1 BAG IVPB SCH (04:23)
[2022-06-20] MEDS: Aspirin Chewable 81 MG TAB PO SCH (08:24)
[2022-06-20] MEDS: Enoxaparin Sodium 40 MG/0.4 ML SYRINGE SC SCH (08:24)
[2022-06-20] MEDS: Ferrous Gluconate 324 MG TAB PO SCH (08:24)
[2022-06-20] MEDS: Cefepime 2 GM in Sodium Chloride 0.9% 100 ML IVPB SCH ×2 (08:24→20:03)
[2022-06-20] MEDS: Senokot S 8.6-50 MG TAB PO SCH ×2 (08:24→20:04)
[2022-06-20] MEDS: HumaLOG 300 UNITS/3 ML VIAL SC PRN (11:43)
[2022-06-20] MEDS: HYDROcodone/Acetaminophen 5/325 mg Tablet PO PRN (16:35)
[2022-06-20] MEDS: Sodium Chloride 0.9% 1,000 ML IV SCH ×2 (17:02→20:05)
[2022-06-21] MEDS: Sodium Chloride 0.9% 1,000 ML IV SCH ×2 (03:28→15:08)
[2022-06-21] MEDS: Vancomycin 1.5 GRAM/300 ML BAG 1.5 GM in Premix Bag 1 BAG IVPB SCH (04:20)
[2022-06-21] MEDS: Acetaminophen 325 MG TAB PO PRN (04:28)
[2022-06-21 06:40] LABS: #Lymphocytes 0.4 thou/uL (1.20-3.40); #Neutrophils 10.2 thou/uL (1.40-6.50); %Eosinophils 0.1 % (0.0-10.0); %Lymphocytes 3.7 % (21.0-51.0); %Monocytes 8.3 % (0.0-10.0); %Neutrophils 87.8 % (42.0-75.0); Hemoglobin 7.2 g/dL (14.0-18.0); Mean Corpuscular HGB CONC 31.9 g/dL (32.0-36.0); Mean Corpuscular Hemoglobin 25.7 pg (27.0-31.0); Mean Corpuscular Volume 80.5 fL (78.0-98.0); Mean Platelet Volume 7.4 fL (7.4-10.4); Platelet Count 245 thou/uL (130-400); RBC Distribution Width 14.8 % (11.5-14.5); White Blood Cell (WBC) Count 11.7 thou/uL (4.8-10.8)
[2022-06-21 06:52] LABS: Anion Gap 12 mmol/L (10-20); BUN (Urea Nitrogen) 22 mg/dL (8.4-25.7); Calc. Creatinine Clearance 74 mL/min (70-130); Calcium 8.6 mg/dL (7.8-10.44); Carbon Dioxide 20 mmol/L (23-31); Chloride 107 mmol/L (98-107); Estimated GFR 69; Glucose 275 mg/dL (83-110); Potassium 4.2 mmol/L (3.5-5.1); Sodium 135 mmol/L (136-145)
[2022-06-21] MEDS: Cefepime 2 GM in Sodium Chloride 0.9% 100 ML IVPB SCH (08:29)
[2022-06-21] MEDS: Ferrous Gluconate 324 MG TAB PO SCH (08:30)
[2022-06-21] MEDS: Enoxaparin Sodium 40 MG/0.4 ML SYRINGE SC SCH (08:30)
[2022-06-21] MEDS: Aspirin Chewable 81 MG TAB PO SCH (08:30)
[2022-06-21] MEDS: Senokot S 8.6-50 MG TAB PO SCH ×2 (08:30→19:45)
[2022-06-21] MEDS: HumaLOG 300 UNITS/3 ML VIAL SC PRN (19:46)
[2022-06-21] MEDS: Doxycycline 100 MG in Sodium Chloride 0.9% 100 ML IVPB SCH (19:46)
[2022-06-21] MEDS: HYDROcodone/Acetaminophen 5/325 mg Tablet PO PRN (20:01)
[2022-06-21] MEDS ORDERED: Polyethylene Glycol 3350 17 GM Packet PO SCH (21:15)
[2022-06-22 03:26] LABS: #Eosinphils 0.2 thou/uL (0.0-0.7); #Lymphocytes 1.6 thou/uL (1.20-3.40); #Monocytes 1.1 thou/uL (0.11-0.59); %Basophils 0.5 % (0.0-1.0); %Eosinophils 1.5 % (0.0-10.0); %Lymphocytes 16.2 % (21.0-51.0); %Monocytes 11.5 % (0.0-10.0); %Neutrophils 70.3 % (42.0-75.0); Hemoglobin 7.1 g/dL (14.0-18.0); Mean Corpuscular HGB CONC 31.3 g/dL (32.0-36.0); Mean Corpuscular Hemoglobin 25.6 pg (27.0-31.0); Mean Corpuscular Volume 81.6 fL (78.0-98.0); Mean Platelet Volume 7.5 fL (7.4-10.4); Platelet Count 241 thou/uL (130-400); RBC Distribution Width 14.7 % (11.5-14.5); Red Blood Cell (RBC) Count 2.77 mill/uL (4.70-6.10); White Blood Cell (WBC) Count 9.9 thou/uL (4.8-10.8)
[2022-06-22 03:46] LABS: Anion Gap 10 mmol/L (10-20); BUN (Urea Nitrogen) 23 mg/dL (8.4-25.7); Calc. Creatinine Clearance 78 mL/min (70-130); Calcium 8.6 mg/dL (7.8-10.44); Carbon Dioxide 22 mmol/L (23-31); Chloride 108 mmol/L (98-107); Estimated GFR 73; Glucose 214 mg/dL (83-110); Potassium 4.3 mmol/L (3.5-5.1); Sodium 136 mmol/L (136-145); Vancomycin, Trough 16.7 ug/mL
[2022-06-22] MEDS: HYDROcodone/Acetaminophen 5/325 mg Tablet PO PRN ×2 (04:42→15:59)
[2022-06-22] MEDS: Vancomycin 1.5 GRAM/300 ML BAG 1.5 GM in Premix Bag 1 BAG IVPB SCH (04:44)
[2022-06-22] MEDS: Sodium Chloride 0.9% 1,000 ML IV SCH ×2 (07:30→17:09)
[2022-06-22] MEDS: Enoxaparin Sodium 40 MG/0.4 ML SYRINGE SC SCH (08:01)
[2022-06-22] MEDS: Aspirin Chewable 81 MG TAB PO SCH (08:02)
[2022-06-22] MEDS: Ferrous Gluconate 324 MG TAB PO SCH (08:02)
[2022-06-22] MEDS: Senokot S 8.6-50 MG TAB PO SCH ×2 (08:02→20:31)
[2022-06-22] MEDS: Doxycycline 100 MG in Sodium Chloride 0.9% 100 ML IVPB SCH ×3 (08:04→20:30)
[2022-06-22] MEDS: HumaLOG 300 UNITS/3 ML VIAL SC PRN ×2 (18:03→20:31)
[2022-06-22] MEDS: Acetaminophen 325 MG TAB PO PRN (20:34)
[2022-06-23] MEDS: Vancomycin 1.5 GRAM/300 ML BAG 1.5 GM in Premix Bag 1 BAG IVPB SCH (04:06)
[2022-06-23] MEDS: HumaLOG 300 UNITS/3 ML VIAL SC PRN ×4 (05:16→21:17)
[2022-06-23 06:38] LABS: #Eosinphils 0.1 thou/uL (0.0-0.7); #Lymphocytes 1.4 thou/uL (1.20-3.40); #Monocytes 0.7 thou/uL (0.11-0.59); #Neutrophils 6.4 thou/uL (1.40-6.50); %Eosinophils 0.9 % (0.0-10.0); %Lymphocytes 16.5 % (21.0-51.0); %Monocytes 8.1 % (0.0-10.0); %Neutrophils 74.5 % (42.0-75.0); Hemoglobin 6.9 g/dL (14.0-18.0); Mean Corpuscular HGB CONC 31.2 g/dL (32.0-36.0); Mean Corpuscular Hemoglobin 25.1 pg (27.0-31.0); Mean Corpuscular Volume 80.5 fL (78.0-98.0); Mean Platelet Volume 7.3 fL (7.4-10.4); Platelet Count 274 thou/uL (130-400); RBC Distribution Width 14.8 % (11.5-14.5); Red Blood Cell (RBC) Count 2.76 mill/uL (4.70-6.10); White Blood Cell (WBC) Count 8.6 thou/uL (4.8-10.8)
[2022-06-23 07:43] LABS: Anion Gap 11 mmol/L (10-20); BUN (Urea Nitrogen) 15 mg/dL (8.4-25.7); Calc. Creatinine Clearance 97 mL/min (70-130); Calcium 8.7 mg/dL (7.8-10.44); Carbon Dioxide 21 mmol/L (23-31); Chloride 107 mmol/L (98-107); Estimated GFR 90; Glucose 195 mg/dL (83-110); Sodium 135 mmol/L (136-145)
[2022-06-23] MEDS: Sodium Chloride 0.9% 1,000 ML IV SCH ×2 (08:00→12:28)
[2022-06-23] MEDS: Aspirin Chewable 81 MG TAB PO SCH (09:27)
[2022-06-23] MEDS: Doxycycline 100 MG in Sodium Chloride 0.9% 100 ML IVPB SCH ×2 (09:27→20:07)
[2022-06-23] MEDS: Ferrous Gluconate 324 MG TAB PO SCH (09:27)
[2022-06-23] MEDS: Senokot S 8.6-50 MG TAB PO SCH ×2 (09:27→20:07)
[2022-06-23] MEDS: HYDROcodone/Acetaminophen 5/325 mg Tablet PO PRN ×2 (09:37→17:18)
[2022-06-23] MEDS: Enoxaparin Sodium 40 MG/0.4 ML SYRINGE SC SCH (09:42)
[2022-06-23] MEDS ORDERED: Bisacodyl 5 MG TAB PO SCH (23:45)
[2022-06-23] MEDS ORDERED: Polyethylene Glycol 3350 17 GM Packet PO PRN (23:51)
[2022-06-24 03:31] LABS: #Eosinphils 0.1 thou/uL (0.0-0.7); #Lymphocytes 1.6 thou/uL (1.20-3.40); #Neutrophils 6.3 thou/uL (1.40-6.50); %Basophils 0.5 % (0.0-1.0); %Eosinophils 1.3 % (0.0-10.0); %Lymphocytes 17.4 % (21.0-51.0); %Monocytes 10.7 % (0.0-10.0); %Neutrophils 70.1 % (42.0-75.0); Hemoglobin 8.3 g/dL (14.0-18.0); Mean Corpuscular HGB CONC 31.6 g/dL (32.0-36.0); Mean Corpuscular Hemoglobin 25.7 pg (27.0-31.0); Mean Corpuscular Volume 81.5 fL (78.0-98.0); Mean Platelet Volume 7.2 fL (7.4-10.4); Platelet Count 296 thou/uL (130-400); RBC Distribution Width 15.1 % (11.5-14.5); Red Blood Cell (RBC) Count 3.22 mill/uL (4.70-6.10)
[2022-06-24 03:36] LABS: Vancomycin, Trough 16.7 ug/mL
[2022-06-24 03:38] LABS: Anion Gap 12 mmol/L (10-20); BUN (Urea Nitrogen) 12 mg/dL (8.4-25.7); Calc. Creatinine Clearance 100 mL/min (70-130); Calcium 9.2 mg/dL (7.8-10.44); Carbon Dioxide 23 mmol/L (23-31); Chloride 104 mmol/L (98-107); Estimated GFR 92; Glucose 176 mg/dL (83-110); Potassium 4.1 mmol/L (3.5-5.1); Sodium 135 mmol/L (136-145)
[2022-06-24] MEDS: Vancomycin 1.5 GRAM/300 ML BAG 1.5 GM in Premix Bag 1 BAG IVPB SCH (04:36)
[2022-06-24] MEDS: Doxycycline 100 MG in Sodium Chloride 0.9% 100 ML IVPB SCH ×2 (09:28→21:16)
[2022-06-24] MEDS: Senokot S 8.6-50 MG TAB PO SCH ×2 (09:28→21:16)
[2022-06-24] MEDS: Aspirin Chewable 81 MG TAB PO SCH (09:28)
[2022-06-24] MEDS: Ferrous Gluconate 324 MG TAB PO SCH (09:28)
[2022-06-24] MEDS: Sodium Chloride 0.9% 1,000 ML IV SCH (09:42)
[2022-06-24] MEDS: HYDROcodone/Acetaminophen 5/325 mg Tablet PO PRN ×2 (09:49→14:38)
[2022-06-24] MEDS: Enoxaparin Sodium 40 MG/0.4 ML SYRINGE SC SCH (09:51)
[2022-06-24] MEDS ORDERED: Magnesium Citrate 300 ML BOT PO SCH (10:00)
[2022-06-24] MEDS ORDERED: Polyethylene Glycol 3350 17 GM Packet PO SCH (10:30)
[2022-06-24] MEDS: HumaLOG 300 UNITS/3 ML VIAL SC PRN (12:29)
[2022-06-24 15:06] VITALS: BMI 30.7
[2022-06-24] MEDS ORDERED: Bisacodyl 10 MG SUPP PR PRN (20:44)
[2022-06-24] MEDS ORDERED: Ketorolac Tromethamine 30 MG/ML VIAL IVP SCH (20:45)
[2022-06-24] MEDS ORDERED: Milk Of Magnesia 30 ML UDCUP PO SCH (20:45)
[2022-06-25] MEDS: Vancomycin 1.5 GRAM/300 ML BAG 1.5 GM in Premix Bag 1 BAG IVPB SCH (03:01)
[2022-06-25] MEDS: HumaLOG 300 UNITS/3 ML VIAL SC PRN ×3 (06:24→17:32)
[2022-06-25 07:17] LABS: #Eosinphils 0.1 thou/uL (0.0-0.7); #Lymphocytes 1.4 thou/uL (1.20-3.40); #Monocytes 1.1 thou/uL (0.11-0.59); #Neutrophils 9.4 thou/uL (1.40-6.50); %Basophils 0.1 % (0.0-1.0); %Lymphocytes 11.4 % (21.0-51.0); %Monocytes 9.4 % (0.0-10.0); Hemoglobin 8.8 g/dL (14.0-18.0); Mean Corpuscular HGB CONC 31.6 g/dL (32.0-36.0); Mean Corpuscular Hemoglobin 25.5 pg (27.0-31.0); Mean Platelet Volume 7.1 fL (7.4-10.4); Platelet Count 343 thou/uL (130-400); RBC Distribution Width 15.3 % (11.5-14.5); Red Blood Cell (RBC) Count 3.44 mill/uL (4.70-6.10)
[2022-06-25 07:46] LABS: Anion Gap 12 mmol/L (10-20); BUN (Urea Nitrogen) 20 mg/dL (8.4-25.7); Calc. Creatinine Clearance 79 mL/min (70-130); Calcium 9.3 mg/dL (7.8-10.44); Carbon Dioxide 24 mmol/L (23-31); Chloride 104 mmol/L (98-107); Estimated GFR 71; Glucose 219 mg/dL (83-110); Potassium 4.4 mmol/L (3.5-5.1); Sodium 136 mmol/L (136-145)
[2022-06-25] MEDS: Ferrous Gluconate 324 MG TAB PO SCH (09:17)
[2022-06-25] MEDS: Aspirin Chewable 81 MG TAB PO SCH (09:17)
[2022-06-25] MEDS: Enoxaparin Sodium 40 MG/0.4 ML SYRINGE SC SCH (09:18)
[2022-06-25] MEDS: Senokot S 8.6-50 MG TAB PO SCH ×2 (09:18→20:20)
[2022-06-25] MEDS: Polyethylene Glycol 3350 17 GM Packet PO SCH (09:19)
[2022-06-25] MEDS: Doxycycline 100 MG in Sodium Chloride 0.9% 100 ML IVPB SCH ×2 (10:01→20:19)
[2022-06-25] MEDS: HYDROcodone/Acetaminophen 5/325 mg Tablet PO PRN (14:43)
[2022-06-25] MEDS: Acetaminophen 325 MG TAB PO PRN (20:19)
[2022-06-26] MEDS: Vancomycin 1.5 GRAM/300 ML BAG 1.5 GM in Premix Bag 1 BAG IVPB SCH (04:26)
[2022-06-26] MEDS: HumaLOG 300 UNITS/3 ML VIAL SC PRN ×4 (06:31→20:21)
[2022-06-26] MEDS: Polyethylene Glycol 3350 17 GM Packet PO SCH (08:25)
[2022-06-26] MEDS: Enoxaparin Sodium 40 MG/0.4 ML SYRINGE SC SCH (08:25)
[2022-06-26] MEDS: Senokot S 8.6-50 MG TAB PO SCH ×2 (08:25→20:22)
[2022-06-26] MEDS: Aspirin Chewable 81 MG TAB PO SCH (08:25)
[2022-06-26] MEDS: Ferrous Gluconate 324 MG TAB PO SCH (08:25)
[2022-06-26] MEDS: Doxycycline 100 MG in Sodium Chloride 0.9% 100 ML IVPB SCH (08:25)
[2022-06-26] MEDS: Acetaminophen 325 MG TAB PO PRN ×2 (08:39→17:17)
[2022-06-26] MEDS: Linezolid 600 MG TAB PO SCH (20:23)
[2022-06-27] MEDS: Enoxaparin Sodium 40 MG/0.4 ML SYRINGE SC SCH (08:47)
[2022-06-27] MEDS: Senokot S 8.6-50 MG TAB PO SCH ×2 (08:50→20:49)
[2022-06-27] MEDS: Ferrous Gluconate 324 MG TAB PO SCH (08:50)
[2022-06-27] MEDS: Polyethylene Glycol 3350 17 GM Packet PO SCH (08:51)
[2022-06-27] MEDS: Aspirin Chewable 81 MG TAB PO SCH (08:51)
[2022-06-27] MEDS: Linezolid 600 MG TAB PO SCH ×2 (08:51→20:48)
[2022-06-27] MEDS: HYDROcodone/Acetaminophen 5/325 mg Tablet PO PRN (10:29)
[2022-06-27] MEDS: HumaLOG 300 UNITS/3 ML VIAL SC PRN ×2 (11:55→20:50)
[2022-06-27] MEDS: Acetaminophen 325 MG TAB PO PRN (20:48)
[2022-06-28] MEDS: HumaLOG 300 UNITS/3 ML VIAL SC PRN (04:35)
[2022-06-28 06:55] LABS: #Eosinphils 0.1 thou/uL (0.0-0.7); #Lymphocytes 1.4 thou/uL (1.20-3.40); #Monocytes 0.7 thou/uL (0.11-0.59); #Neutrophils 9.5 thou/uL (1.40-6.50); %Basophils 0.3 % (0.0-1.0); %Eosinophils 0.8 % (0.0-10.0); %Lymphocytes 11.6 % (21.0-51.0); %Monocytes 6.1 % (0.0-10.0); %Neutrophils 81.2 % (42.0-75.0); Hemoglobin 8.6 g/dL (14.0-18.0); Mean Corpuscular HGB CONC 32.2 g/dL (32.0-36.0); Mean Corpuscular Volume 80.9 fL (78.0-98.0); Platelet Count 399 thou/uL (130-400); RBC Distribution Width 15.4 % (11.5-14.5); Red Blood Cell (RBC) Count 3.31 mill/uL (4.70-6.10); White Blood Cell (WBC) Count 11.7 thou/uL (4.8-10.8)
[2022-06-28 07:26] LABS: Anion Gap 13 mmol/L (10-20); BUN (Urea Nitrogen) 19 mg/dL (8.4-25.7); Calc. Creatinine Clearance 81 mL/min (70-130); Calcium 9.1 mg/dL (7.8-10.44); Carbon Dioxide 24 mmol/L (23-31); Chloride 103 mmol/L (98-107); Estimated GFR 73; Glucose 204 mg/dL (83-110); Potassium 4.1 mmol/L (3.5-5.1); Sodium 136 mmol/L (136-145)
[2022-06-28] MEDS: Polyethylene Glycol 3350 17 GM Packet PO SCH (08:31)
[2022-06-28] MEDS: Enoxaparin Sodium 40 MG/0.4 ML SYRINGE SC SCH (08:31)
[2022-06-28] MEDS: Senokot S 8.6-50 MG TAB PO SCH (08:32)
[2022-06-28] MEDS: Aspirin Chewable 81 MG TAB PO SCH (08:33)
[2022-06-28] MEDS: Linezolid 600 MG TAB PO SCH (08:33)
[2022-06-28] MEDS: Ferrous Gluconate 324 MG TAB PO SCH (08:33)
[2022-06-28 10:56] VITALS: BP 131/73; TEMP 98.3
== END 2022-06-28 14:47 | disposition home or self-care (01) | DRG 500 ==
LOC: ERS 18:14 → T4-B 21:06 → OBSVTOIN 06-19 17:11
PROVIDERS: ADMIT Student in an Organized Health Care Education/Training Program; ATTEND Family Medicine
PROC: 3E03329 Introduction of Other Anti-infective into Peripheral Vein, Percutaneous Approach (ICD-10-PCS; 2022-06-18)
PROC: 30233N1 Transfusion of Nonautologous Red Blood Cells into Peripheral Vein, Percutaneous Approach (ICD-10-PCS; principal; 2022-06-23)
PROC: 0QDM0ZZ Extraction of Left Tarsal, Open Approach (ICD-10-PCS; 2022-06-23)
DX: T87.44 Infection of amputation stump, left lower extremity (principal); A41.02 Sepsis due to Methicillin resistant Staphylococcus aureus; G93.41 Metabolic encephalopathy; R65.20 Severe sepsis without septic shock; E87.20 Acidosis, unspecified; M86.8X7 Other osteomyelitis, ankle and foot; N17.9 Acute kidney failure, unspecified; E11.69 Type 2 diabetes mellitus with other specified complication; E78.5 Hyperlipidemia, unspecified; E11.22 Type 2 diabetes mellitus with diabetic chronic kidney disease; E11.51 Type 2 diabetes mellitus with diabetic peripheral angiopathy without gangrene; L08.9 Local infection of the skin and subcutaneous tissue, unspecified; I12.9 Hypertensive chronic kidney disease with stage 1 through stage 4 chronic kidney disease, or unspecified chronic kidney disease; N18.30 Chronic kidney disease, stage 3 unspecified; E11.621 Type 2 diabetes mellitus with foot ulcer; L97.529 Non-pressure chronic ulcer of other part of left foot with unspecified severity; D50.8 Other iron deficiency anemias; K59.01 Slow transit constipation; Z20.822 Contact with and (suspected) exposure to COVID-19; Z89.422 Acquired absence of other left toe(s); Z79.82 Long term (current) use of aspirin; Z79.84 Long term (current) use of oral hypoglycemic drugs; Z79.899 Other long term (current) drug therapy
CPT/HCPCS: 36415; 36416; 36430; 71045; 76770; 80048; 80053; 80202; 81001; 82306; 82570; 82728; 83036; 83540; 83550; 83605; 83735; 83880; 83970; 84100; 84156; 84484; 85025; 85046; 85652; 86140; 86850; 86900; 86901; 87040; 87077; 87149; 87186; 87811; 96361; 96365; 96366; 96372; 96375; 96376; 97139; 99285; G0378; J0692; J1650; J1815; J1885; J2405; J3370; J3475; J3490; J7030; J7050; P9016; U0003; U0005

== ENCOUNTER 2022-07-05 11:06 | Outpatient (CLI) | payer MEDICARE | END 2022-07-05 11:07 | disposition home or self-care (01) | LOC: BICRAD 11:06 | PROVIDERS: ATTEND Podiatrist | DX: L97.409 Non-pressure chronic ulcer of unspecified heel and midfoot with unspecified severity (principal); M19.072 Primary osteoarthritis, left ankle and foot ==

== ENCOUNTER 2022-08-05 16:44 | Inpatient (IN) | payer MEDICARE ==
[2022-08-05 17:22] LABS: Hemoglobin 7.2 g/dL (14.0-18.0); Mean Corpuscular HGB CONC 30.6 g/dL (32.0-36.0); Mean Corpuscular Hemoglobin 24.1 pg (27.0-31.0); Mean Corpuscular Volume 78.6 fl (78.0-98.0); Mean Platelet Volume 7.4 fL (7.4-10.4); Platelet Count 661 10x3/uL (130-400); RBC Distribution Width 17.8 % (11.5-14.5); Red Blood Cell (RBC) Count 2.99 mill/uL (4.70-6.10); White Blood Cell (WBC) Count 24.2 10x3/uL (4.8-10.8)
[2022-08-05 17:40] LABS: ALT (SGPT) 144 U/L (8-55); AST (SGOT) 139 U/L (5-34); Albumin 3.4 g/dL (3.4-4.8); Alkaline Phosphatase 132 U/L (40-110); Anion Gap 26 mmol/L (10-20); BUN (Urea Nitrogen) 31 mg/dL (8.4-25.7); Bilirubin, Total 0.9 mg/dL (0.2-1.2); Calc. Creatinine Clearance 0 mL/min (70-130); Calcium 9.9 mg/dL (7.8-10.44); Carbon Dioxide 16 mmol/L (23-31); Chloride 99 mmol/L (98-107); Estimated GFR 33; Potassium 5.3 mmol/L (3.5-5.1); Protein, Total 8.4 g/dL (5.8-8.1); Sodium 136 mmol/L (136-145)
[2022-08-05 17:48] LABS: Glucose 407 mg/dL (83-110)
[2022-08-05 17:57] LABS: Band 2 % (5-11); Helmet Cells SLIGHT = 2-5 cells (100X) (0-1/hpf); Hypochromia SLIGHT = 6-15 cells (100X) (0-5/hpf); Lymphocytes 5 % (21-51); MDiff Complete? YES; Metamyelocyte 1 % (0-0); Monocytes 5 % (0-10); Neutrophil 87 % (42-75); Platelet Morphology Comment Appears Increased; Polychromasia SLIGHT = 2-3 cells (100X) (0-2/hpf); Schistocytes SLIGHT = 2-5 cells (100X) (0-1/hpf); Tear Drops SLIGHT = 2-5 cells (100X) (0-1/hpf)
[2022-08-05] MEDS ORDERED: Vancomycin 1 GM/200 ML (FROZEN) BAG ONE (18:21)
[2022-08-05] MEDS ORDERED: Cefepime 2 GM VIAL ONE (18:21)
[2022-08-05 19:20] LABS: Bacteria/HPF 4+ HPF (None Seen); Bilirubin Negative (Negative); Blood, Urine Negative (Negative); Clarity Turbid (Clear); Glucose, Urine (Dipstick) 150 mg/dL (Negative); Ketone, Urine Trace mg/dL (Negative); Leukocyte 500 Leu/uL (Negative); Nitrite Negative (Negative); Protein, Urine (Dipstick) 20 mg/dL (Neg-Trace); RBC/HPF 0-3 HPF (0-3); Specific Gravity, Urine 1.014 (1.002-1.036); Squamous Epithelial 0-3 HPF (0-3); Urobilinogen Normal mg/dL (Less than 2); WBC/HPF Greater than 50 HPF (0-3); pH, Urine 5.5 (5.0-9.0)
[2022-08-05] MEDS ORDERED: Ondansetron PF 4 MG/2 ML Vial IVP PRN (20:29)
[2022-08-05] MEDS ORDERED: Insulin Regular 300 UNITS/3 ML VIAL ONE (20:35)
[2022-08-05 21:42] LABS: Lactic Acid 1.5 mmol/L (0.5-2.2)
[2022-08-05 22:12] LABS: Anion Gap 12 mmol/L (10-20); BUN (Urea Nitrogen) 28 mg/dL (8.4-25.7); Calc. Creatinine Clearance 0 mL/min (70-130); Calcium 8.4 mg/dL (7.8-10.44); Carbon Dioxide 22 mmol/L (23-31); Chloride 105 mmol/L (98-107); Estimated GFR 46; Sodium 135 mmol/L (136-145)
[2022-08-05 23:28] LABS: Glucose 298 mg/dL (83-110)
[2022-08-06] MEDS: Vancomycin HCl 500 MG in Sodium Chloride 0.9% 100 ML IVPB SCH ×2 (00:28→15:09)
[2022-08-06] MEDS: Cefepime 1 GM in Sodium Chloride 0.9% 100 ML IVPB SCH ×2 (04:58→17:31)
[2022-08-06] MEDS: Sodium Chloride 0.9% 1,000 ML IV SCH ×2 (04:58→18:20)
[2022-08-06 05:22] LABS: Anion Gap 15 mmol/L (10-20); BUN (Urea Nitrogen) 27 mg/dL (8.4-25.7); Calc. Creatinine Clearance 58 mL/min (70-130); Calcium 8.5 mg/dL (7.8-10.44); Carbon Dioxide 23 mmol/L (23-31); Chloride 103 mmol/L (98-107); Estimated GFR 61; Glucose 227 mg/dL (83-110); Potassium 3.9 mmol/L (3.5-5.1); Sodium 137 mmol/L (136-145)
[2022-08-06 05:36] LABS: Albumin 2.9 g/dL (3.4-4.8)
[2022-08-06 05:39] LABS: Protein, Total 6.8 g/dL (5.8-8.1)
[2022-08-06 05:40] LABS: Bilirubin, Total 0.4 mg/dL (0.2-1.2)
[2022-08-06 05:41] LABS: Alkaline Phosphatase 101 U/L (40-110)
[2022-08-06 05:43] LABS: AST (SGOT) 65 U/L (5-34)
[2022-08-06 05:44] LABS: ALT (SGPT) 97 U/L (8-55); Bilirubin, Direct 0.3 mg/dL (0.1-0.3)
[2022-08-06 07:12] LABS: #Eosinphils 0.1 thou/uL (0.0-0.7); #Lymphocytes 1.3 thou/uL (1.20-3.40); #Neutrophils 11.6 thou/uL (1.40-6.50); %Basophils 0.1 % (0.0-1.0); %Eosinophils 0.4 % (0.0-10.0); %Lymphocytes 9.5 % (21.0-51.0); Hemoglobin 6.7 g/dL (14.0-18.0); Mean Corpuscular Hemoglobin 24.3 pg (27.0-31.0); Mean Corpuscular Volume 81.1 fl (78.0-98.0); Mean Platelet Volume 7.5 fL (7.4-10.4); Platelet Count 453 10x3/uL (130-400); RBC Distribution Width 17.6 % (11.5-14.5); Red Blood Cell (RBC) Count 2.76 mill/uL (4.70-6.10)
[2022-08-06] MEDS: Amlodipine 5 MG TAB PO SCH (09:45)
[2022-08-06 09:58] LABS: Hemoglobin 6.2 g/dL (14.0-18.0)
[2022-08-06] MEDS ORDERED: Pantoprazole 40 MG VIAL IVP SCH (11:45)
[2022-08-06] MEDS ORDERED: GoLYTELY 4,000 ml Bottle PO SCH (16:00)
[2022-08-06 18:51] LABS: Hemoglobin 6.9 g/dL (14.0-18.0)
[2022-08-06] MEDS ORDERED: Dextrose 50% Abboject 50 ML SYRINGE SLOW IVP PRN (19:06)
[2022-08-06] MEDS ORDERED: Dextrose 5% in Water 1,000 ML IV PRN (19:06)
[2022-08-06] MEDS: Pantoprazole 40 MG VIAL IVP SCH (21:03)
[2022-08-06] MEDS: Atorvastatin Calcium 10 MG TAB PO SCH (21:03)
[2022-08-07] MEDS: Vancomycin HCl 500 MG in Sodium Chloride 0.9% 100 ML IVPB SCH (01:36)
[2022-08-07 05:02] LABS: #Eosinphils 0.1 thou/uL (0.0-0.7); #Lymphocytes 1.2 thou/uL (1.20-3.40); #Monocytes 0.9 thou/uL (0.11-0.59); #Neutrophils 13.9 thou/uL (1.40-6.50); %Basophils 0.2 % (0.0-1.0); %Eosinophils 0.3 % (0.0-10.0); %Lymphocytes 7.5 % (21.0-51.0); %Monocytes 5.7 % (0.0-10.0); %Neutrophils 86.4 % (42.0-75.0); Hemoglobin 8.3 g/dL (14.0-18.0); Mean Corpuscular HGB CONC 32.2 g/dL (32.0-36.0); Mean Corpuscular Hemoglobin 26.2 pg (27.0-31.0); Mean Corpuscular Volume 81.3 fl (78.0-98.0); Mean Platelet Volume 7.4 fL (7.4-10.4); Platelet Count 421 10x3/uL (130-400); RBC Distribution Width 17.9 % (11.5-14.5); Red Blood Cell (RBC) Count 3.15 mill/uL (4.70-6.10); White Blood Cell (WBC) Count 16.1 10x3/uL (4.8-10.8)
[2022-08-07 05:21] LABS: ALT (SGPT) 109 U/L (8-55); AST (SGOT) 105 U/L (5-34); Albumin 2.8 g/dL (3.4-4.8); Alkaline Phosphatase 131 U/L (40-110); Bilirubin, Direct 0.4 mg/dL (0.1-0.3); Bilirubin, Total 0.7 mg/dL (0.2-1.2); Protein, Total 6.8 g/dL (5.8-8.1)
[2022-08-07] MEDS: Acetaminophen 325 MG TAB PO PRN ×3 (05:23→21:39)
[2022-08-07 05:24] LABS: Anion Gap 15 mmol/L (10-20); BUN (Urea Nitrogen) 13 mg/dL (8.4-25.7); Calc. Creatinine Clearance 89 mL/min (70-130); Calcium 8.2 mg/dL (7.8-10.44); Carbon Dioxide 24 mmol/L (23-31); Chloride 103 mmol/L (98-107); Estimated GFR 92; Glucose 265 mg/dL (83-110); Potassium 3.1 mmol/L (3.5-5.1); Sodium 139 mmol/L (136-145)
[2022-08-07] MEDS: Cefepime 1 GM in Sodium Chloride 0.9% 100 ML IVPB SCH ×2 (05:24→17:53)
[2022-08-07] MEDS: HumaLOG 300 UNITS/3 ML VIAL SC PRN ×2 (06:34→22:20)
[2022-08-07] MEDS: Sodium Chloride 0.9% 1,000 ML IV SCH (08:00)
[2022-08-07] MEDS: Amlodipine 5 MG TAB PO SCH (08:56)
[2022-08-07] MEDS: Pantoprazole 40 MG VIAL IVP SCH ×2 (08:57→21:39)
[2022-08-07] MEDS ORDERED: fentaNYL PF 100 MCG/2 ML SYRINGE ONE (09:41)
[2022-08-07] MEDS ORDERED: PROPOFOL 200 MG/20 ML VIAL ONE (09:47)
[2022-08-07] MEDS ORDERED: Ondansetron HCl/PF 4 MG/2 ML Vial IVP PRN (10:19)
[2022-08-07] MEDS ORDERED: Morphine Sulfate 2 MG/ML SYRINGE SLOW IVP PRN (10:19)
[2022-08-07] MEDS: Vancomycin HCl 750 MG in Sodium Chloride 0.9% 250 ML 250 ML IVPB SCH (13:17)
[2022-08-07] MEDS: Atorvastatin Calcium 10 MG TAB PO SCH (21:39)
[2022-08-08] MEDS: Vancomycin HCl 750 MG in Sodium Chloride 0.9% 250 ML 250 ML IVPB SCH (01:42)
[2022-08-08] MEDS: Sodium Chloride 0.9% 1,000 ML IV SCH ×2 (01:42→17:40)
[2022-08-08 05:23] LABS: #Eosinphils 0.2 thou/uL (0.0-0.7); #Lymphocytes 1.2 thou/uL (1.20-3.40); #Monocytes 0.6 thou/uL (0.11-0.59); #Neutrophils 9.2 thou/uL (1.40-6.50); %Eosinophils 1.4 % (0.0-10.0); %Lymphocytes 10.8 % (21.0-51.0); %Monocytes 5.3 % (0.0-10.0); %Neutrophils 82.4 % (42.0-75.0); Hemoglobin 7.2 g/dL (14.0-18.0); Mean Corpuscular Hemoglobin 25.4 pg (27.0-31.0); Mean Corpuscular Volume 82.1 fl (78.0-98.0); Mean Platelet Volume 7.6 fL (7.4-10.4); Platelet Count 339 10x3/uL (130-400); RBC Distribution Width 17.8 % (11.5-14.5); Red Blood Cell (RBC) Count 2.85 mill/uL (4.70-6.10); White Blood Cell (WBC) Count 11.1 10x3/uL (4.8-10.8)
[2022-08-08 05:29] LABS: Anion Gap 11 mmol/L (10-20); BUN (Urea Nitrogen) 11 mg/dL (8.4-25.7); Calc. Creatinine Clearance 89 mL/min (70-130); Calcium 7.5 mg/dL (7.8-10.44); Carbon Dioxide 25 mmol/L (23-31); Chloride 104 mmol/L (98-107); Estimated GFR 92; Glucose 258 mg/dL (83-110); Potassium 2.9 mmol/L (3.5-5.1); Sodium 137 mmol/L (136-145)
[2022-08-08] MEDS: Cefepime 1 GM in Sodium Chloride 0.9% 100 ML IVPB SCH (05:40)
[2022-08-08] MEDS: HumaLOG 300 UNITS/3 ML VIAL SC PRN (05:44)
[2022-08-08] MEDS ORDERED: Potassium Chloride 40 MEQ in Sodium Chloride 0.9% 250 ML 250 ML IVPB SCH (08:15)
[2022-08-08] MEDS: Pantoprazole 40 MG VIAL IVP SCH ×2 (10:14→20:12)
[2022-08-08] MEDS: Amlodipine 5 MG TAB PO SCH (10:14)
[2022-08-08] MEDS ORDERED: Ketamine 50 MG/ML (10ML VIAL) ONE (13:34)
[2022-08-08] MEDS ORDERED: fentaNYL PF 100 MCG/2 ML SYRINGE ONE (13:34)
[2022-08-08] MEDS ORDERED: Dexmedetomidine 200 MCG/2 ML VIAL ONE (13:34)
[2022-08-08] MEDS ORDERED: PROPOFOL 200 MG/20 ML VIAL ONE (13:51)
[2022-08-08] MEDS ORDERED: Ondansetron PF 4 MG/2 ML Vial ONE (13:51)
[2022-08-08] MEDS ORDERED: Glycopyrrolate 0.2 MG/ML 5 ML SYRINGE ONE (13:51)
[2022-08-08] MEDS ORDERED: Bupivacaine PF 0.5% 30 ML VIAL ONE (14:08)
[2022-08-08] MEDS ORDERED: Vancomycin HCl 750 MG in Sodium Chloride 0.9% 250 ML 250 ML IVPB SCH (14:45)
[2022-08-08] MEDS ORDERED: Morphine 4 MG/ML VIAL SLOW IVP PRN (16:41)
[2022-08-08] MEDS: cefTRIAXone\\ROCEPHIN 1 GM in Sodium Chloride 0.9% 100 ML IVPB SCH (17:51)
[2022-08-08] MEDS: HYDROcodone/Acetaminophen 5/325 mg Tablet PO PRN (20:12)
[2022-08-08] MEDS: Atorvastatin Calcium 10 MG TAB PO SCH (20:12)
[2022-08-09] MEDS: HYDROcodone/Acetaminophen 5/325 mg Tablet PO PRN ×3 (02:08→22:06)
[2022-08-09] MEDS: Sodium Chloride 0.9% 1,000 ML IV SCH ×2 (02:17→18:12)
[2022-08-09 06:48] LABS: #Eosinphils 0.1 thou/uL (0.0-0.7); #Monocytes 0.8 thou/uL (0.11-0.59); #Neutrophils 9.6 thou/uL (1.40-6.50); %Basophils 0.2 % (0.0-1.0); %Eosinophils 0.5 % (0.0-10.0); %Lymphocytes 8.4 % (21.0-51.0); %Monocytes 6.8 % (0.0-10.0); %Neutrophils 84.1 % (42.0-75.0); Hemoglobin 9.2 g/dL (14.0-18.0); Mean Corpuscular HGB CONC 31.9 g/dL (32.0-36.0); Mean Corpuscular Hemoglobin 26.6 pg (27.0-31.0); Mean Corpuscular Volume 83.4 fl (78.0-98.0); Mean Platelet Volume 7.4 fL (7.4-10.4); Platelet Count 360 10x3/uL (130-400); RBC Distribution Width 17.9 % (11.5-14.5); Red Blood Cell (RBC) Count 3.47 mill/uL (4.70-6.10); White Blood Cell (WBC) Count 11.4 10x3/uL (4.8-10.8)
[2022-08-09 07:05] LABS: Anion Gap 15 mmol/L (10-20); BUN (Urea Nitrogen) 9 mg/dL (8.4-25.7); Calc. Creatinine Clearance 104 mL/min (70-130); Calcium 7.3 mg/dL (7.8-10.44); Carbon Dioxide 23 mmol/L (23-31); Chloride 101 mmol/L (98-107); Estimated GFR 97; Glucose 241 mg/dL (83-110); Potassium 3.1 mmol/L (3.5-5.1); Sodium 136 mmol/L (136-145)
[2022-08-09] MEDS: Pantoprazole 40 MG VIAL IVP SCH ×2 (09:18→22:06)
[2022-08-09] MEDS: Amlodipine 5 MG TAB PO SCH (09:18)
[2022-08-09] MEDS: HumaLOG 300 UNITS/3 ML VIAL SC PRN ×4 (09:19→23:24)
[2022-08-09 11:57] VITALS: BMI 26.9
[2022-08-09] MEDS: cefTRIAXone\\ROCEPHIN 1 GM in Sodium Chloride 0.9% 100 ML IVPB SCH (18:12)
[2022-08-09] MEDS: Atorvastatin Calcium 10 MG TAB PO SCH (22:06)
[2022-08-10] MEDS: HYDROcodone/Acetaminophen 5/325 mg Tablet PO PRN ×3 (04:14→22:12)
[2022-08-10] MEDS: HumaLOG 300 UNITS/3 ML VIAL SC PRN ×4 (06:04→22:13)
[2022-08-10] MEDS: Amlodipine 5 MG TAB PO SCH (08:01)
[2022-08-10] MEDS: Pantoprazole 40 MG VIAL IVP SCH ×2 (08:01→22:12)
[2022-08-10] MEDS: Sodium Chloride 0.9% 1,000 ML IV SCH ×2 (09:37→22:14)
[2022-08-10] MEDS: cefTRIAXone\\ROCEPHIN 1 GM in Sodium Chloride 0.9% 100 ML IVPB SCH (17:00)
[2022-08-10] MEDS: Insulin Glargine 30 UNITS/0.3 ML VIAL SC SCH (22:12)
[2022-08-10] MEDS: Atorvastatin Calcium 10 MG TAB PO SCH (22:12)
[2022-08-11] MEDS: HumaLOG 300 UNITS/3 ML VIAL SC PRN ×3 (05:53→21:36)
[2022-08-11 06:51] LABS: #Eosinphils 0.1 thou/uL (0.0-0.7); #Lymphocytes 1.1 thou/uL (1.20-3.40); #Monocytes 0.6 thou/uL (0.11-0.59); %Basophils 0.4 % (0.0-1.0); %Eosinophils 0.8 % (0.0-10.0); %Lymphocytes 11.4 % (21.0-51.0); %Monocytes 6.1 % (0.0-10.0); %Neutrophils 81.2 % (42.0-75.0); Hemoglobin 8.6 g/dL (14.0-18.0); Mean Corpuscular HGB CONC 31.6 g/dL (32.0-36.0); Mean Corpuscular Hemoglobin 26.5 pg (27.0-31.0); Mean Corpuscular Volume 83.9 fl (78.0-98.0); Mean Platelet Volume 7.4 fL (7.4-10.4); Platelet Count 282 10x3/uL (130-400); Red Blood Cell (RBC) Count 3.23 mill/uL (4.70-6.10); White Blood Cell (WBC) Count 9.8 10x3/uL (4.8-10.8)
[2022-08-11 06:57] LABS: Anion Gap 13 mmol/L (10-20); BUN (Urea Nitrogen) 7 mg/dL (8.4-25.7); Calc. Creatinine Clearance 105 mL/min (70-130); Calcium 7.2 mg/dL (7.8-10.44); Carbon Dioxide 22 mmol/L (23-31); Chloride 104 mmol/L (98-107); Estimated GFR 97; Glucose 195 mg/dL (83-110); Potassium 3.1 mmol/L (3.5-5.1); Sodium 136 mmol/L (136-145)
[2022-08-11] MEDS: Acetaminophen 325 MG TAB PO PRN ×2 (10:07→21:37)
[2022-08-11] MEDS: Amlodipine 5 MG TAB PO SCH (10:08)
[2022-08-11] MEDS: Sodium Chloride 0.9% 1,000 ML IV SCH (17:29)
[2022-08-11] MEDS: cefTRIAXone\\ROCEPHIN 1 GM in Sodium Chloride 0.9% 100 ML IVPB SCH (18:55)
[2022-08-11] MEDS: Pantoprazole 40 MG VIAL IVP SCH ×2 (19:24→21:35)
[2022-08-11] MEDS: Insulin Glargine 30 UNITS/0.3 ML VIAL SC SCH (21:35)
[2022-08-11] MEDS: Atorvastatin Calcium 10 MG TAB PO SCH (21:35)
[2022-08-12] MEDS: Sodium Chloride 0.9% 1,000 ML IV SCH (01:34)
[2022-08-12] MEDS: HumaLOG 300 UNITS/3 ML VIAL SC PRN ×2 (06:12→12:54)
[2022-08-12] MEDS ORDERED: Insulin Glargine 30 UNITS/0.3 ML VIAL SC SCH (09:00)
[2022-08-12] MEDS: Pantoprazole 40 MG VIAL IVP SCH (09:41)
[2022-08-12] MEDS: Amlodipine 5 MG TAB PO SCH (09:41)
[2022-08-12] MEDS: HYDROcodone/Acetaminophen 5/325 mg Tablet PO PRN (09:42)
[2022-08-12 12:04] VITALS: BP 136/71; TEMP 98.6
== END 2022-08-12 15:41 | DRG 853 ==
LOC: ERS 16:44 → 2NO 22:26 → SURG B 08-08 17:12
PROVIDERS: ADMIT Internal Medicine; ATTEND Internal Medicine
PROC: 3E03329 Introduction of Other Anti-infective into Peripheral Vein, Percutaneous Approach (ICD-10-PCS; 2022-08-05)
PROC: 0DJ08ZZ Inspection of Upper Intestinal Tract, Via Natural or Artificial Opening Endoscopic (ICD-10-PCS; 2022-08-07)
PROC: 0DJD8ZZ Inspection of Lower Intestinal Tract, Via Natural or Artificial Opening Endoscopic (ICD-10-PCS; 2022-08-07)
PROC: 0Y6J0Z1 Detachment at Left Lower Leg, High, Open Approach (ICD-10-PCS; principal; 2022-08-08)
DX: A41.53 Sepsis due to Serratia (principal); M72.6 Necrotizing fasciitis; E87.20 Acidosis, unspecified; N39.0 Urinary tract infection, site not specified; M86.172 Other acute osteomyelitis, left ankle and foot; N17.9 Acute kidney failure, unspecified; Z20.822 Contact with and (suspected) exposure to COVID-19; R65.20 Severe sepsis without septic shock; K29.50 Unspecified chronic gastritis without bleeding; K57.30 Diverticulosis of large intestine without perforation or abscess without bleeding; B96.89 Other specified bacterial agents as the cause of diseases classified elsewhere; E78.5 Hyperlipidemia, unspecified; E11.69 Type 2 diabetes mellitus with other specified complication; E11.621 Type 2 diabetes mellitus with foot ulcer; L97.529 Non-pressure chronic ulcer of other part of left foot with unspecified severity; E11.65 Type 2 diabetes mellitus with hyperglycemia; E11.22 Type 2 diabetes mellitus with diabetic chronic kidney disease; I12.9 Hypertensive chronic kidney disease with stage 1 through stage 4 chronic kidney disease, or unspecified chronic kidney disease; N18.30 Chronic kidney disease, stage 3 unspecified; D50.8 Other iron deficiency anemias; Z79.82 Long term (current) use of aspirin; Z79.84 Long term (current) use of oral hypoglycemic drugs; Z79.899 Other long term (current) drug therapy; Z88.8 Allergy status to other drugs, medicaments and biological substances
CPT/HCPCS: 36415; 36416; 36430; 71045; 80048; 80053; 80076; 80202; 81003; 81015; 83605; 84484; 85025; 86850; 86900; 86901; 87040; 87077; 87086; 87149; 87186; 88305; 88307; 88342; 93005; 96365; 96367; 96375; 97139; C9113; J0692; J0696; J1815; J2405; J2704; J3370; J3370-JW; J3480; J3490; J7050; P9016; S0020; U0003; U0005

== ENCOUNTER 2022-10-24 09:27 | Inpatient (IN) | payer MEDICARE ==
[2022-10-24 10:15] LABS: #Eosinphils 0.1 thou/uL (0.0-0.7); #Lymphocytes 1.1 thou/uL (1.20-3.40); #Neutrophils 12.3 thou/uL (1.40-6.50); %Basophils 0.1 % (0.0-1.0); %Eosinophils 0.4 % (0.0-10.0); %Lymphocytes 7.9 % (21.0-51.0); %Monocytes 6.9 % (0.0-10.0); %Neutrophils 84.8 % (42.0-75.0); Hemoglobin 8.9 g/dL (14.0-18.0); Mean Corpuscular HGB CONC 32.3 g/dL (32.0-36.0); Mean Corpuscular Hemoglobin 27.5 pg (27.0-31.0); Mean Corpuscular Volume 84.9 fl (78.0-98.0); Mean Platelet Volume 7.2 fL (7.4-10.4); Platelet Count 299 10x3/uL (130-400); RBC Distribution Width 14.8 % (11.5-14.5); Red Blood Cell (RBC) Count 3.23 mill/uL (4.70-6.10); White Blood Cell (WBC) Count 14.5 10x3/uL (4.8-10.8)
[2022-10-24 10:27] LABS: INR-International Normal Ratio 1.2; Prothrombin Time 15.5 sec (12.0-14.7)
[2022-10-24 10:28] LABS: PTT 45.6 sec (22.9-36.1)
[2022-10-24] MEDS ORDERED: Cefepime 2 GM VIAL ONE (10:32)
[2022-10-24 10:36] LABS: ALT (SGPT) 28 U/L (8-55); AST (SGOT) 38 U/L (5-34); Albumin 2.9 g/dL (3.4-4.8); Alkaline Phosphatase 130 U/L (40-110); Anion Gap 15 mmol/L (10-20); BUN (Urea Nitrogen) 22 mg/dL (8.4-25.7); Bilirubin, Total 0.5 mg/dL (0.2-1.2); Calc. Creatinine Clearance 0 mL/min (70-130); Calcium 9.2 mg/dL (7.8-10.44); Carbon Dioxide 24 mmol/L (23-31); Chloride 102 mmol/L (98-107); Estimated GFR 90; Globulin 4.4 g/dL (2.4-3.5); Glucose 162 mg/dL (83-110); Potassium 3.8 mmol/L (3.5-5.1); Protein, Total 7.3 g/dL (5.8-8.1); Sodium 137 mmol/L (136-145)
[2022-10-24] MEDS ORDERED: Vancomycin 1 GM/200 ML (FROZEN) BAG ONE (11:36)
[2022-10-24] MEDS ORDERED: Dextrose 5% in Water 1,000 ML IV PRN (12:24)
[2022-10-24] MEDS ORDERED: Dextrose 50% Abboject 50 ML SYRINGE SLOW IVP PRN (12:24)
[2022-10-24] MEDS ORDERED: Acetaminophen 325 MG TAB PO PRN (12:24)
[2022-10-24] MEDS ORDERED: HumaLOG 300 UNITS/3 ML VIAL SC PRN ×2 (12:26)
[2022-10-24 19:50] VITALS: BMI 24.3
[2022-10-24] MEDS: Cefepime 2 GM in Sodium Chloride 0.9% 100 ML IVPB SCH (20:46)
[2022-10-24] MEDS ORDERED: Vancomycin HCl 750 MG in Sodium Chloride 0.9% 250 ML 250 ML IVPB SCH (22:00)
[2022-10-25 05:59] LABS: #Eosinphils 0.1 thou/uL (0.0-0.7); #Lymphocytes 1.2 thou/uL (1.20-3.40); #Monocytes 0.7 thou/uL (0.11-0.59); #Neutrophils 8.6 thou/uL (1.40-6.50); %Basophils 0.1 % (0.0-1.0); %Eosinophils 0.7 % (0.0-10.0); %Lymphocytes 11.3 % (21.0-51.0); %Monocytes 6.3 % (0.0-10.0); %Neutrophils 81.6 % (42.0-75.0); Hemoglobin 8.8 g/dL (14.0-18.0); Mean Corpuscular HGB CONC 32.1 g/dL (32.0-36.0); Mean Corpuscular Hemoglobin 27.4 pg (27.0-31.0); Mean Corpuscular Volume 85.5 fl (78.0-98.0); Mean Platelet Volume 7.1 fL (7.4-10.4); Platelet Count 266 10x3/uL (130-400); RBC Distribution Width 14.5 % (11.5-14.5); White Blood Cell (WBC) Count 10.5 10x3/uL (4.8-10.8)
[2022-10-25 06:13] LABS: Anion Gap 16 mmol/L (10-20); BUN (Urea Nitrogen) 16 mg/dL (8.4-25.7); Calc. Creatinine Clearance 101 mL/min (70-130); Carbon Dioxide 21 mmol/L (23-31); Chloride 106 mmol/L (98-107); Estimated GFR 99; Potassium 3.6 mmol/L (3.5-5.1); Sodium 139 mmol/L (136-145)
[2022-10-25 06:19] LABS: Glucose 53 mg/dL (83-110)
[2022-10-25] MEDS: Cefepime 2 GM in Sodium Chloride 0.9% 100 ML IVPB SCH ×2 (09:05→20:27)
[2022-10-25] MEDS: metroNIDAZOLE 500 MG in Premix Bag 1 BAG IVPB SCH ×3 (13:30→23:50)
[2022-10-25] MEDS: Vancomycin HCl 750 MG in Sodium Chloride 0.9% 250 ML 250 ML IVPB SCH ×2 (15:48→22:50)
[2022-10-25] MEDS: Atorvastatin Calcium 10 MG TAB PO SCH (20:27)
[2022-10-25 21:19] LABS: Vancomycin, Trough 17.5 ug/mL
[2022-10-26 06:53] LABS: #Eosinphils 0.1 thou/uL (0.0-0.7); #Monocytes 0.6 thou/uL (0.11-0.59); #Neutrophils 7.1 thou/uL (1.40-6.50); %Basophils 0.2 % (0.0-1.0); %Eosinophils 0.9 % (0.0-10.0); %Lymphocytes 11.3 % (21.0-51.0); %Monocytes 6.7 % (0.0-10.0); %Neutrophils 80.9 % (42.0-75.0); Hemoglobin 7.8 g/dL (14.0-18.0); Mean Corpuscular HGB CONC 32.7 g/dL (32.0-36.0); Mean Corpuscular Hemoglobin 27.9 pg (27.0-31.0); Mean Corpuscular Volume 85.5 fl (78.0-98.0); Mean Platelet Volume 6.9 fL (7.4-10.4); Platelet Count 271 10x3/uL (130-400); RBC Distribution Width 14.3 % (11.5-14.5); Red Blood Cell (RBC) Count 2.79 mill/uL (4.70-6.10); White Blood Cell (WBC) Count 8.8 10x3/uL (4.8-10.8)
[2022-10-26 07:10] LABS: Anion Gap 11 mmol/L (10-20); BUN (Urea Nitrogen) 13 mg/dL (8.4-25.7); Calc. Creatinine Clearance 95 mL/min (70-130); Calcium 8.6 mg/dL (7.8-10.44); Carbon Dioxide 23 mmol/L (23-31); Chloride 104 mmol/L (98-107); Estimated GFR 97; Glucose 149 mg/dL (83-110); Potassium 3.6 mmol/L (3.5-5.1); Sodium 134 mmol/L (136-145)
[2022-10-26] MEDS ORDERED: Dextrose 5%-Lactated Ringers 1,000 ML IV SCH (08:00)
[2022-10-26] MEDS ORDERED: Lactated Ringer's 1,000 ML IV SCH (08:00)
[2022-10-26] MEDS: metroNIDAZOLE 500 MG in Premix Bag 1 BAG IVPB SCH ×2 (08:15→15:46)
[2022-10-26] MEDS: Cefepime 2 GM in Sodium Chloride 0.9% 100 ML IVPB SCH ×2 (09:11→20:47)
[2022-10-26] MEDS ORDERED: fentaNYL PF 100 MCG/2 ML SYRINGE ONE ×2 (10:09→13:32)
[2022-10-26] MEDS: Vancomycin HCl 750 MG in Sodium Chloride 0.9% 250 ML 250 ML IVPB SCH ×2 (11:53→23:06)
[2022-10-26] MEDS ORDERED: Fentanyl 100 MCG/2 ML VIAL ONE (12:35)
[2022-10-26] MEDS ORDERED: Ropivacaine 0.5% HCl/PF (150 MG/30 ML VIAL) ONE (12:35)
[2022-10-26] MEDS ORDERED: PROPOFOL 200 MG/20 ML VIAL ONE (13:39)
[2022-10-26] MEDS ORDERED: Lidocaine 1% PF 5 ML VIAL ONE (13:39)
[2022-10-26] MEDS ORDERED: PHENYLEPHRINE-NS 100 MCG/ML 10 ML SYRINGE ONE (13:39)
[2022-10-26] MEDS ORDERED: Ondansetron PF 4 MG/2 ML Vial ONE (13:39)
[2022-10-26] MEDS ORDERED: Acetaminophen 500 MG TAB PO PRN (14:01)
[2022-10-26] MEDS ORDERED: traMADol HCl 50 MG TAB PO PRN (14:01)
[2022-10-26] MEDS ORDERED: Acetaminophen 500 MG TAB PO SCH (14:15)
[2022-10-26] MEDS ORDERED: Promethazine HCl 25 MG/ML VIAL IM PRN (15:03)
[2022-10-26] MEDS ORDERED: Ondansetron HCl/PF 4 MG/2 ML Vial IVP PRN (15:03)
[2022-10-26] MEDS: Gabapentin 100 MG CAP PO SCH ×2 (16:09→20:47)
[2022-10-26] MEDS: HYDROcodone/Acetaminophen 5/325 mg Tablet PO PRN ×2 (16:10→20:49)
[2022-10-26] MEDS ORDERED: Morphine 4 MG/ML VIAL SLOW IVP PRN (16:14)
[2022-10-26] MEDS ORDERED: Ketorolac Tromethamine 30 MG/ML VIAL IVP SCH ×3 (16:15→17:00)
[2022-10-26] MEDS: Atorvastatin Calcium 10 MG TAB PO SCH (20:50)
[2022-10-26] MEDS: Ketorolac Tromethamine 30 MG/ML VIAL IVP SCH (23:06)
[2022-10-27] MEDS: Ketorolac Tromethamine 30 MG/ML VIAL IVP SCH ×4 (06:33→23:55)
[2022-10-27] MEDS: HYDROcodone/Acetaminophen 5/325 mg Tablet PO PRN (06:34)
[2022-10-27 07:12] LABS: #Eosinphils 0.1 thou/uL (0.0-0.7); #Lymphocytes 1.1 thou/uL (1.20-3.40); #Monocytes 0.6 thou/uL (0.11-0.59); #Neutrophils 6.8 thou/uL (1.40-6.50); %Basophils 0.1 % (0.0-1.0); %Eosinophils 1.4 % (0.0-10.0); %Lymphocytes 12.4 % (21.0-51.0); %Monocytes 7.1 % (0.0-10.0); Hemoglobin 7.3 g/dL (14.0-18.0); Mean Corpuscular HGB CONC 32.4 g/dL (32.0-36.0); Mean Corpuscular Hemoglobin 28.1 pg (27.0-31.0); Mean Corpuscular Volume 86.7 fl (78.0-98.0); Mean Platelet Volume 6.9 fL (7.4-10.4); Platelet Count 248 10x3/uL (130-400); White Blood Cell (WBC) Count 8.6 10x3/uL (4.8-10.8)
[2022-10-27 07:29] LABS: Anion Gap 10 mmol/L (10-20); BUN (Urea Nitrogen) 17 mg/dL (8.4-25.7); Calc. Creatinine Clearance 95 mL/min (70-130); Calcium 7.8 mg/dL (7.8-10.44); Carbon Dioxide 22 mmol/L (23-31); Chloride 109 mmol/L (98-107); Estimated GFR 97; Glucose 125 mg/dL (83-110); Sodium 137 mmol/L (136-145)
[2022-10-27] MEDS: Gabapentin 100 MG CAP PO SCH ×3 (08:56→19:45)
[2022-10-27] MEDS: Cefepime 2 GM in Sodium Chloride 0.9% 100 ML IVPB SCH (08:56)
[2022-10-27] MEDS: Polyethylene Glycol 3350 17 GM Packet PO SCH (08:56)
[2022-10-27] MEDS ORDERED: FLU VACC QS2022-23(65YR UP)/PF 240 MCG/0.7 ML SYRINGE IM ONE (09:00)
[2022-10-27] MEDS: Vancomycin HCl 750 MG in Sodium Chloride 0.9% 250 ML 250 ML IVPB SCH (10:52)
[2022-10-27] MEDS: Atorvastatin Calcium 10 MG TAB PO SCH (19:46)
[2022-10-28] MEDS: Ketorolac Tromethamine 30 MG/ML VIAL IVP SCH ×2 (05:04→12:46)
[2022-10-28 05:56] LABS: #Eosinphils 0.1 thou/uL (0.0-0.7); #Monocytes 0.5 thou/uL (0.11-0.59); %Basophils 0.3 % (0.0-1.0); %Eosinophils 1.2 % (0.0-10.0); %Lymphocytes 13.6 % (21.0-51.0); %Monocytes 6.8 % (0.0-10.0); %Neutrophils 78.2 % (42.0-75.0); Hemoglobin 7.4 g/dL (14.0-18.0); Mean Corpuscular HGB CONC 32.3 g/dL (32.0-36.0); Mean Corpuscular Hemoglobin 28.1 pg (27.0-31.0); Mean Platelet Volume 7.1 fL (7.4-10.4); Platelet Count 264 10x3/uL (130-400); RBC Distribution Width 14.4 % (11.5-14.5); Red Blood Cell (RBC) Count 2.64 mill/uL (4.70-6.10); White Blood Cell (WBC) Count 7.6 10x3/uL (4.8-10.8)
[2022-10-28 06:18] LABS: Anion Gap 11 mmol/L (10-20); BUN (Urea Nitrogen) 14 mg/dL (8.4-25.7); Calc. Creatinine Clearance 104 mL/min (70-130); Calcium 8.1 mg/dL (7.8-10.44); Carbon Dioxide 21 mmol/L (23-31); Chloride 107 mmol/L (98-107); Estimated GFR 100; Glucose 145 mg/dL (83-110); Potassium 3.9 mmol/L (3.5-5.1); Sodium 135 mmol/L (136-145)
[2022-10-28] MEDS: Polyethylene Glycol 3350 17 GM Packet PO SCH (10:02)
[2022-10-28] MEDS: Gabapentin 100 MG CAP PO SCH (10:07)
[2022-10-28 15:29] VITALS: BP 157/80; TEMP 98.9
== END 2022-10-28 15:30 | DRG 240 ==
LOC: ERS 09:27 → SURG B 13:59
PROVIDERS: ADMIT Family Medicine; ATTEND Family Medicine
PROC: 0Y6C0Z1 Detachment at Right Upper Leg, High, Open Approach (ICD-10-PCS; principal; 2022-10-26)
PROC: 30233N1 Transfusion of Nonautologous Red Blood Cells into Peripheral Vein, Percutaneous Approach (ICD-10-PCS; 2022-10-26)
DX: E11.52 Type 2 diabetes mellitus with diabetic peripheral angiopathy with gangrene (principal); M86.8X0 Other osteomyelitis, multiple sites; E11.69 Type 2 diabetes mellitus with other specified complication; N18.2 Chronic kidney disease, stage 2 (mild); E11.22 Type 2 diabetes mellitus with diabetic chronic kidney disease; D50.9 Iron deficiency anemia, unspecified; I12.9 Hypertensive chronic kidney disease with stage 1 through stage 4 chronic kidney disease, or unspecified chronic kidney disease; E78.5 Hyperlipidemia, unspecified; D63.1 Anemia in chronic kidney disease; F03.90 Unspecified dementia, unspecified severity, without behavioral disturbance, psychotic disturbance, mood disturbance, and anxiety; E78.00 Pure hypercholesterolemia, unspecified; Z20.822 Contact with and (suspected) exposure to COVID-19; Z88.1 Allergy status to other antibiotic agents; Z79.82 Long term (current) use of aspirin; Z98.890 Other specified postprocedural states; Z89.512 Acquired absence of left leg below knee
CPT/HCPCS: 36415; 36416; 36430; 80048; 80053; 80202; 83036; 83605; 85025; 85610; 85652; 85730; 86140; 86850; 86900; 86901; 87040; 87070; 87077; 87186; 87205; 88307; 88311; 93005; 96365; 96367; 97139; J0692; J1650; J1885; J2270; J2405; J2704; J2795; J3010; J3370; J3370-JW; J3490; J7050; P9016; U0003; U0005

== ENCOUNTER 2025-06-24 21:58 | Inpatient (IN) | payer MEDICARE, MEDICAID ==
[2025-06-24 22:32] LABS: #Basophils 0.04 10x3/uL (0.0-0.2); #Eosinophils 0.07 10x3/uL (0.0-0.7); #Monocytes 0.97 10x3/uL (0.11-0.59); #Neutrophils 9.62 10x3/uL (1.40-6.50); %Basophils 0.3 % (0.0-1.0); %Eosinophils 0.5 % (0.0-10.0); %Lymphocytes 16.6 % (21.0-51.0); %Monocytes 7.5 % (0.0-10.0); %Neutrophils 74.2 % (42.0-75.0); Hematocrit 33.5 % (42.0-52.0); Hemoglobin 10.2 g/dL (14.0-18.0); Mean Corpuscular Hemoglobin 24.5 pg (27.0-31.0); Mean Corpuscular Volume 80.3 fL (78.0-98.0); Platelet Count 274 10x3/uL (130-400); Red Blood Cell (RBC) Count 4.17 mill/uL (4.70-6.10); White Blood Cell (WBC) Count 12.97 10x3/uL (4.8-10.8)
[2025-06-24 22:57] LABS: ALT (SGPT) 26 U/L (Less than 45); AST (SGOT) 34 U/L (11-34); Albumin 3.6 g/dL (3.1-4.5); Alkaline Phosphatase 97 U/L (40-110); Anion Gap 18 mmol/L (10-20); BUN (Urea Nitrogen) 16 mg/dL (8.4-25.7); Bilirubin, Total 0.3 mg/dL (0.3-1.2); Calc. Creatinine Clearance 0 mL/min (70-130); Calcium 9.3 mg/dL (7.8-10.44); Carbon Dioxide 21 mmol/L (23-31); Chloride 109 mmol/L (98-107); Globulin 4.2 g/dL (2.4-3.5); Glucose 174 mg/dL (83-110); Potassium 3.9 mmol/L (3.5-5.1); Sodium 144 mmol/L (136-145)
[2025-06-24] MEDS ORDERED: Ondansetron PF 4 MG/2 ML Vial ONE (23:32)
[2025-06-24 23:35] LABS: Lipase 12 U/L (8-78); Magnesium 2.1 mg/dL (1.6-2.6)
[2025-06-25] MEDS ORDERED: Ondansetron PF 4 MG/2 ML Vial ONE (00:30)
[2025-06-25] MEDS ORDERED: Magnesium 2 GM/50 ML BAG (IN WATER) ONE (00:30)
[2025-06-25] MEDS ORDERED: Potassium Bicarbonate/Cit Ac 20 MEQ TAB ONE (07:22)
[2025-06-25] MEDS ORDERED: Pantoprazole 40 MG VIAL ONE (07:49)
[2025-06-25] MEDS ORDERED: Ondansetron PF 4 MG/2 ML Vial IVP PRN (09:10)
[2025-06-25] MEDS ORDERED: Acetaminophen 325 MG TAB PO PRN (09:10)
[2025-06-25] MEDS ORDERED: Glucagon 1 MG/ML KIT IM PRN (09:10)
[2025-06-25] MEDS ORDERED: Dextrose 50% Abboject 50 ML SYRINGE SLOW IVP PRN (09:10)
[2025-06-25] MEDS ORDERED: Electrolyte Replacement Protocol 1 EACH FS SCH (09:15)
[2025-06-25] MEDS ORDERED: Iopamidol-370 76% 500 ML MDV (1 ML CHARGE) ONE (12:19)
[2025-06-25 13:44] LABS: Hematocrit 29.8 % (42.0-52.0); Hemoglobin 9.0 g/dL (14.0-18.0)
[2025-06-25 19:53] LABS: Hematocrit 28.2 % (42.0-52.0); Hemoglobin 8.6 g/dL (14.0-18.0)
[2025-06-25] MEDS: Pantoprazole 40 MG VIAL IVP SCH (21:39)
[2025-06-26 06:35] LABS: #Basophils 0.07 10x3/uL (0.0-0.2); #Eosinophils 0.08 10x3/uL (0.0-0.7); #Monocytes 1.24 10x3/uL (0.11-0.59); #Neutrophils 13.41 10x3/uL (1.40-6.50); %Basophils 0.4 % (0.0-1.0); %Eosinophils 0.5 % (0.0-10.0); %Lymphocytes 12.5 % (21.0-51.0); %Monocytes 7.3 % (0.0-10.0); %Neutrophils 78.8 % (42.0-75.0); Hematocrit 26.3 % (42.0-52.0); Hemoglobin 8.1 g/dL (14.0-18.0); Mean Corpuscular Hemoglobin 24.8 pg (27.0-31.0); Mean Corpuscular Volume 80.7 fL (78.0-98.0); Platelet Count 264 10x3/uL (130-400); Red Blood Cell (RBC) Count 3.26 mill/uL (4.70-6.10); White Blood Cell (WBC) Count 17.01 10x3/uL (4.8-10.8)
[2025-06-26 07:12] LABS: ALT (SGPT) 17 U/L (Less than 45); AST (SGOT) 20 U/L (11-34); Albumin 2.7 g/dL (3.1-4.5); Alkaline Phosphatase 78 U/L (40-110); Anion Gap 11 mmol/L (10-20); BUN (Urea Nitrogen) 25 mg/dL (8.4-25.7); Bilirubin, Total 0.3 mg/dL (0.3-1.2); Calc. Creatinine Clearance 66 mL/min (70-130); Calcium 8.3 mg/dL (7.8-10.44); Carbon Dioxide 21 mmol/L (23-31); Chloride 115 mmol/L (98-107); Globulin 3.3 g/dL (2.4-3.5); Glucose 145 mg/dL (83-110); Potassium 3.4 mmol/L (3.5-5.1); Sodium 144 mmol/L (136-145)
[2025-06-26] MEDS: Potassium Chloride 20 MEQ in Premix 1 BAG IVPB SCH (08:38)
[2025-06-27 07:43] LABS: #Basophils 0.05 10x3/uL (0.0-0.2); #Eosinophils 0.09 10x3/uL (0.0-0.7); #Monocytes 0.71 10x3/uL (0.11-0.59); #Neutrophils 9.27 10x3/uL (1.40-6.50); %Basophils 0.4 % (0.0-1.0); %Eosinophils 0.7 % (0.0-10.0); %Lymphocytes 16.5 % (21.0-51.0); %Monocytes 5.8 % (0.0-10.0); %Neutrophils 75.9 % (42.0-75.0); Hematocrit 26.3 % (42.0-52.0); Hemoglobin 8.0 g/dL (14.0-18.0); Mean Corpuscular Hemoglobin 24.9 pg (27.0-31.0); Mean Corpuscular Volume 81.9 fL (78.0-98.0); Platelet Count 235 10x3/uL (130-400); Red Blood Cell (RBC) Count 3.21 mill/uL (4.70-6.10); White Blood Cell (WBC) Count 12.21 10x3/uL (4.8-10.8)
[2025-06-27 08:02] LABS: Anion Gap 10 mmol/L (10-20); BUN (Urea Nitrogen) 13 mg/dL (8.4-25.7); Calc. Creatinine Clearance 94 mL/min (70-130); Calcium 8.4 mg/dL (7.8-10.44); Carbon Dioxide 22 mmol/L (23-31); Chloride 112 mmol/L (98-107); Glucose 187 mg/dL (83-110); Potassium 3.3 mmol/L (3.5-5.1); Sodium 141 mmol/L (136-145)
[2025-06-27] MEDS: Potassium Chloride 20 MEQ in Premix 1 BAG IVPB SCH (08:56)
[2025-06-28 07:58] VITALS: BP 151/78; TEMP 98.3
[2025-06-28] MEDS: Losartan 25 MG TAB PO SCH (08:49)
== END 2025-06-28 15:07 | DRG 378 ==
LOC: ERS 21:58 → ERHOLD 06-25 08:16 → T4-A 06-25 12:58
PROVIDERS: ADMIT Internal Medicine; ATTEND Internal Medicine
DX: K92.0 Hematemesis (principal); N17.9 Acute kidney failure, unspecified; E78.5 Hyperlipidemia, unspecified; I10 Essential (primary) hypertension; K29.60 Other gastritis without bleeding; D50.9 Iron deficiency anemia, unspecified; K52.89 Other specified noninfective gastroenteritis and colitis; E11.9 Type 2 diabetes mellitus without complications; K63.89 Other specified diseases of intestine; R14.3 Flatulence; F03.90 Unspecified dementia, unspecified severity, without behavioral disturbance, psychotic disturbance, mood disturbance, and anxiety; Z98.890 Other specified postprocedural states; Z89.422 Acquired absence of other left toe(s); Z89.512 Acquired absence of left leg below knee; Z88.8 Allergy status to other drugs, medicaments and biological substances; Z79.899 Other long term (current) drug therapy; Z79.84 Long term (current) use of oral hypoglycemic drugs; Z79.02 Long term (current) use of antithrombotics/antiplatelets; Z79.82 Long term (current) use of aspirin
CPT/HCPCS: 36415; 36416; 74018; 74174; 80048; 80053; 83605; 83690; 83735; 84484; 85014; 85018; 85025; 86850; 86900; 86901; 87040; 93005; 96361; 96365; 96366; 96375; J2405; J2470; J2543; J3475; J3480; J7120; Q9967